=== PATIENT | male | born 1965 | race Caucasian/White ===

== ENCOUNTER → 2016-09-19 | Outpatient (CLI) | payer OTHER ==
[~2016-09-19] MED LIST: ACT30 PO; ASPI81TA28 PO; CLOP1TAB15 PO; DICY20TA35 PO; IBUP-1428 PO; IBUP-1459 PO; LISI-461 PO; METF-384 PO; NTRGSL/4 UT; RANI150T3 PO; ROSU20TA PO
--- NOTE | 2016-09-19 21:14 | DIAGNOSTIC IMAGING REPORT ---
LEFT KNEE 2 VIEWS HISTORY: LEFT KNEE PAIN COMPARISON: None. FINDINGS: There is no fracture or dislocation. No knee effusion. There is thickening at the distal quadriceps tendon. The patella is normally aligned. No radiopaque foreign bodies. IMPRESSION: 1. No fractures within the left knee. 2. Thickening at the distal quadriceps tendon suggestive of a partial tear/tendinopathy. Electronically signed by: Tony Olvera M.D. 09/19/2016 9:13 PM Dictated Date/Time: 09/19/2016 9:12 PM
== END | disposition home or self-care (01) ==
LOC: C.RAD 20:54
PROVIDERS: ATTEND Family Medicine
DX: M25.562 Pain in left knee (principal)

== ENCOUNTER 2016-12-10 15:08 | Emergency (ER) | payer OTHER ==
[~2016-12-10] VITALS: Ht 172.7 cm; Wt 117.0 kg
[~2016-12-10 15:08] MED LIST changes: -DICY20TA35 PO; -IBUP-1428 PO
[2016-12-10 15:13] VITALS: TEMP 36.8; Ht 172.7 cm; Wt 117.0 kg
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
[2016-12-10] MEDS ORDERED: IBUP-1428 PO (16:27)
--- NOTE | 2016-12-10 16:42 | EMERGENCY ROOM VISIT NOTE ---
ED Visit Note First contact with patient: 15:27 Resident Physician Supervision Note: I was present with Dr. Rogers during the history and exam. I discussed the case with the resident and agree with the findings and plan as documented in the note. Any exceptions or clarifications are listed here: [None] Documented By: Gilles Pickett
[2016-12-10 16:58] LABS: BASO % 0.3 %; BASO ABS # 0.02 K/uL (0-0.2); COMPLETE YES; EOS % 1.4 %; HEMATOCRIT 44.5 % (42-52); IG% 0.1 %; LYMPH % 35.7 %; LYMPH ABS # 2.85 K/uL (1.2-3.4); MEAN CORPUSCULAR HEMOGLOBIN 30.1 pg (25-34); MEAN PLATELET VOLUME 8.9 fL (7.4-10.4); MONO % 6.5 %; PLATELET COUNT 331 K/uL (130-400); RED BLOOD COUNT 4.89 M/uL (4.7-6.1); WHITE BLOOD COUNT 7.98 K/uL (4.8-10.8)
[2016-12-10 17:15] LABS: BLOOD UREA NITROGEN 16 mg/dl (7-18); BUN/CREATININE RATIO 12.3 (10-20); CALCIUM 9.5 mg/dl (8.5-10.1); CARBON DIOXIDE 26 mmol/L (21-32); CHLORIDE 104 mmol/L (98-107); GLUCOSE 122 mg/dl (70-99); POTASSIUM 4.3 mmol/L (3.5-5.1); SODIUM 137 mmol/L (136-145)
--- NOTE | 2016-12-10 17:21 | DIAGNOSTIC IMAGING REPORT ---
ABDOMEN 2VIEW W/PA CHEST RTN CLINICAL HISTORY: Abdo/low rib pain pain COMPARISON STUDY: No previous studies for comparison. FINDINGS: The soft tissues, psoas shadows, renal outlines and intestinal gas pattern appear normal. There is no evidence for bowel obstruction. There is no evidence for free intraperitoneal air. No abnormal abdominal calcifications are seen. A frontal view of the chest was performed and is unremarkable. IMPRESSION: Normal study. The above report was generated using voice recognition software. It may contain grammatical, syntax or spelling errors. Electronically signed by: Syed Drew M.D. 12/10/2016 5:19 PM Dictated Date/Time: 12/10/2016 5:18 PM
[2016-12-10] MEDS ORDERED: SIMETHICONE 80 MG CHEW PO SCH (17:24)
[2016-12-10] MEDS ORDERED: DICY20TA35 PO (18:34)
[2016-12-10 18:49] VITALS: BP 148/68; PULSE 80; O2SAT 95
== END 2016-12-10 19:00 | disposition home or self-care (01) ==
LOC: C.EDB 15:09
DX: R10.812 Left upper quadrant abdominal tenderness (principal); E11.9 Type 2 diabetes mellitus without complications; M47.812 Spondylosis without myelopathy or radiculopathy, cervical region; R11.2 Nausea with vomiting, unspecified; Z87.891 Personal history of nicotine dependence; Z98.890 Other specified postprocedural states; Z83.3 Family history of diabetes mellitus; Z82.49 Family history of ischemic heart disease and other diseases of the circulatory system; Z84.1 Family history of disorders of kidney and ureter; Z79.02 Long term (current) use of antithrombotics/antiplatelets; Z79.82 Long term (current) use of aspirin; Z79.84 Long term (current) use of oral hypoglycemic drugs

== ENCOUNTER 2017-07-30 16:08 | Observation (INO) | payer OTHER ==
[~2017-07-30] VITALS: Ht 172.7 cm; Wt 113.5 kg
[~2017-07-30 16:08] MED LIST changes: -ACT30 PO; -ASPI81TA28 PO; -IBUP-1459 PO; -NTRGSL/4 UT; -RANI150T3 PO; -ROSU20TA PO
[2017-07-30] MEDS ORDERED: IBUP-1428 PO (16:27)
[2017-07-30] MEDS ORDERED: METHYLPREDNISOLONE 125 MG VIAL IV STA (16:58)
[2017-07-30] MEDS ORDERED: ALBUT/IPRATROP 3MG/0.5MG NEB 3 ML VIAL INH ONE (17:00)
[2017-07-30] MEDS ORDERED: ESOM20CA PO (17:10)
[2017-07-30 17:41] LABS: BASO % 0.6 %; BASO ABS # 0.03 K/uL (0-0.2); EOS % 0.6 %; EOS ABS # 0.03 K/uL (0-0.5); HEMATOCRIT 42.5 % (42-52); HEMOGLOBIN 14.8 g/dL (14.0-18.0); LYMPH % 29.1 %; LYMPH ABS # 1.41 K/uL (1.2-3.4); MEAN CELL VOLUME 89.7 fL (80-100); MEAN CORPUSCULAR HEMOGLOBIN 31.2 pg (25-34); MEAN CORPUSCULAR HGB CONC 34.8 g/dl (32-36); MEAN PLATELET VOLUME 8.8 fL (7.4-10.4); MONO % 15.5 %; MONO ABS # 0.75 K/uL (0.11-0.59); NEUT % 54.2 %; NEUT ABS # 2.63 K/uL (1.4-6.5); PLATELET COUNT 225 K/uL (130-400); RED CELL DISTRIBUTION WIDTH CV 13.1 % (11.5-14.5); RED CELL DISTRIBUTION WIDTH SD 42.9 fL (36.4-46.3); WHITE BLOOD COUNT 4.85 K/uL (4.8-10.8)
[2017-07-30 18:01] LABS: ALBUMIN 3.4 gm/dl (3.4-5.0); ALT/SGPT 59 U/L (12-78); BLOOD UREA NITROGEN 16 mg/dl (7-18); CALCIUM 8.4 mg/dl (8.5-10.1); CARBON DIOXIDE 26 mmol/L (21-32); CREATININE 1.24 mg/dl (0.60-1.40); GLUCOSE 141 mg/dl (70-99); POTASSIUM 3.8 mmol/L (3.5-5.1); SODIUM 134 mmol/L (136-145)
--- NOTE | 2017-07-30 18:03 | DIAGNOSTIC IMAGING REPORT ---
CHEST 2 VIEWS ROUTINE HISTORY: 51 years-old Male cough, chills, eval PNA acute cough and chills with flulike symptoms COMPARISON: Acute abdominal series radiographs 12/10/2016 TECHNIQUE: PA and lateral views of the chest FINDINGS: Cardiomediastinal and hilar silhouettes are within normal limits. No pneumothorax, pleural effusion, focal airspace consolidation or overt pulmonary edema. The bones of the chest appear grossly intact. IMPRESSION: No acute process. The above report was generated using voice recognition software. It may contain grammatical, syntax or spelling errors. Electronically signed by: Keven Fajardo M.D. 07/30/2017 6:02 PM Dictated Date/Time: 07/30/2017 6:00 PM
[2017-07-30 18:06] LABS: ALKALINE PHOSPHATASE 56 U/L (45-117); AST/SGOT 51 U/L (15-37); TOTAL PROTEIN 6.9 gm/dl (6.4-8.2)
[2017-07-30 18:13] LABS: INFLUENZA B ANTIGEN POS for Influ B (NEG)
[2017-07-30 18:45] VITALS: PULSE 79; O2SAT 93
--- NOTE | 2017-07-30 18:57 | EMERGENCY ROOM VISIT NOTE ---
ED Visit Note First contact with patient: 16:48 CHIEF COMPLAINT: Flulike symptoms HISTORY OF PRESENTING ILLNESS: This is a 51-year-old male who presents to the emergency department with complaints of shortness of breath, cough, headaches and body aches that started yesterday. He reports positive chills and nausea/ vomiting with this, but denies any diarrhea, denies fevers. He states his symptoms have been constant, unrelieved with Tylenol, currently rates his body aches as 10/10. He also complains of some chest tightness and rib pain with coughing. He states that he recently quit smoking about 2 weeks ago, and does report a history of COPD although he states he is not on any medications for this. He also has a history of GERD and coronary artery disease, noting a blockage that he states "they were unable to put a stent in." He takes aspirin daily. He reports positive sick contacts at work with similar symptoms, and he notes that he did not get a flu shot this year. He denies any neck pain or stiffness, vision changes, confusion, numbness or weakness of the extremities, abdominal pain, bloody or black stools, urinary symptoms, or rash. REVIEW OF SYSTEMS: A complete 10 point review of systems was reviewed with the patient with pertinent positives and negatives as per history of present illness. All else were negative. PAST MEDICAL HISTORY: Reviewed in chart SOCIAL HISTORY: Lives at home with significant other. Former smoker, quit 2 weeks ago, denies alcohol or recreational drugs. ALLERGIES: No known allergies. PHYSICAL EXAM: CONSTITUTIONAL: Pleasant and cooperative. No acute distress, but does appear uncomfortable. Mildly dehydrated, but otherwise well appearing and well nourished. HEENT: Normocephalic, atraumatic. Pupils equal, round and reactive to light, EOMI. TMs normal. Pharynx normal. Tacky mucous membranes. NECK: Supple, full active range of motion without discomfort. No nuchal rigidity or meningismus. No cervical adenopathy. RESPIRATORY: Diminished throughout to auscultation bilaterally with inspiratory and expiratory wheezing and some rhonchi, no crackles or stridor. Equal expansion bilaterally. CARDIOVASCULAR: Regular rate and rhythm with no murmurs, rubs or gallops. Normal peripheral perfusion. No edema. GASTROINTESTINAL: Soft, nontender, nondistended. No palpable masses or HSM. Bowel sounds present in all quadrants. MUSCULOSKELETAL: Full range of motion of all joints without discomfort. INTEGUMENTARY: No rash or other significant dermatologic conditions noted. NEUROLOGIC: Alert and oriented X 4 with normal affect. Cranial nerves II-XII grossly intact. No focal neurologic deficits noted. Normal strength and sensation in all 4 extremities. Normal speech. Normal gait observed. ED COURSE AND MEDICAL DECISION MAKING: CC: Patient presenting with complaint of flulike symptoms DIFFERENTIAL DIAGNOSIS: Includes, but not limited to viral URI, bronchitis, pneumonia, influenza, COPD exacerbation, CHF, acute coronary syndrome, PE, pleural effusion, pericarditis, pneumothorax, dehydration, among others. INTERPRETATION OF LABS: No leukocytosis, no anemia, no significant electrolyte abnormalities, normal renal function, normal liver enzymes. Negative troponin, pro-BMP within normal limits. Positive for influenza type B. UA negative. IMAGING: CHEST 2 VIEWS ROUTINE HISTORY: 51 years-old Male cough, chills, eval PNA acute cough and chills with flulike symptoms COMPARISON: Acute abdominal series radiographs 12/10/2016 TECHNIQUE: PA and lateral views of the chest FINDINGS: Cardiomediastinal and hilar silhouettes are within normal limits. No pneumothorax, pleural effusion, focal airspace consolidation or overt pulmonary edema. The bones of the chest appear grossly intact. IMPRESSION: No acute process. EKG: Shows normal sinus rhythm with a rate of 73 bpm, no acute ischemic changes noted and no significant changes when compared to EKG from 12/13/2015 by my interpretation. MEDICATION RECONCILIATION: I attest that I have personally reviewed the patient 's current medication list. INITIAL VITAL SIGNS REVIEW: I reviewed the patient's initial vital signs and interpret them as follows: T: Afebrile; BP: Hypertensive; HR: Within normal limits; RR: Within normal limits; Pulse Ox: Within normal limits on room air. Blood pressure screening: The patient was found to have an elevated blood pressure and was referred to the inpatient team for further management. SUMMARY: Patient was evaluated at bedside, history and physical exam performed. Patient is alert and oriented, in no acute distress but does appear uncomfortable and unwell, resting, and stretcher. Patient's lungs are diminished throughout with inspiratory/expiratory wheezing. Patient reports feeling short of breath, though he is not notably tachypneic or using accessory muscles. Patient is noted to drop his sats down to 89% multiple times while on room air, and is hovering in the low 90s consistently. Patient's reports that the patient normally has sats in the high 90s. Patient was placed on 2 L nasal cannula, with improvement in his sats to 95%. EKG reviewed at bedside, NSR with no acute ischemic changes. Orders were placed at bedside for labs, UA, influenza, DuoNeb and IV Solu-Medrol , chest x-ray to evaluate for pneumonia. Patient discussed with Dr. French, who agrees with my assessment and plan. Labs and imaging reviewed as above, patient is positive for influenza type B. Chest x-ray is clear, no pneumonia or pulmonary edema. IV fluids ordered for hydration. Patient reassessed after hour-long DuoNeb, air movement improved, but lungs still with diffuse expiratory wheezing. Patient performed ambulatory sats, nursing staff reports he ranged between 89-91 % on room air. Given the history of COPD with obvious exacerbation and presence of influenza, and the need for oxygen, I feel the patient would benefit from inpatient admission. I spoke with the [facility] hospitalist resident, who agrees to evaluate the patient for admission. Patient reassessed multiple times throughout ED stay, he does appear improved overall, though he states he continues to feel fatigued and is having body aches. Patient was updated on all results and plan for admission, patient and his verbalized understanding and were agreeable to this plan. The patient was stable at time of admission. Problem List Medical Problems: (1) Blindness of one eye Permanent Comment: R eye prosthesis Status: Chronic (2) Cervical radiculopathy Status: Chronic (3) Depression Status: Chronic (4) DJD (degenerative joint disease) of cervical spine Status: Chronic (5) DM type 2 (diabetes mellitus, type 2) Status: Chronic (6) Dyslipidemia Status: Chronic (7) History of multiple pulmonary nodules Permanent Comment: CT chest 11/25/12- multiple bilateral pulmonary nodules, largest in LLL Status: Chronic Surgical Problems: (1) History of inguinal hernia repair Status: Chronic Current/Historical Medications Scheduled Aspirin (Aspirin Ec), 81 MG PO QAM Esomeprazole Magnesium (Nexium), 20 MG PO Q2D Lisinopril (Lisinopril), 10 MG PO QAM Metformin Hcl (Glucophage), 1,000 MG PO BID Scheduled PRN Ibuprofen (Motrin), 800 MG PO Q6H PRN for Pain Nitroglycerin (Nitrostat), 0.4 MG UT UD PRN for Chest Pain Allergies Coded Allergies: No Known Allergies (Unverified , 07/30/17) Vital Signs Date Time Temp Pulse Resp B/P (MAP) Pulse Ox O2 Delivery O2 Flow Rate FiO2 07/30/17 23:10 122/73 07/30/17 23:06 79 16 93 Nasal Cannula 2.0 07/30/17 22:36 85 07/30/17 22:31 130/81 07/30/17 22:07 84 23 94 07/30/17 22:01 132/78 07/30/17 21:37 85 23 94 07/30/17 21:32 124/ 07/30/17 21:31 100 17 92 07/30/17 21:01 90 16 131/78 94 07/30/17 20:56 90 96 Nasal Cannula 2.0 07/30/17 20:41 92 26 91 07/30/17 20:35 89 Room Air 07/30/17 20:35 91 Room Air 07/30/17 20:26 91 25 91 07/30/17 20:11 104 17 92 07/30/17 20:06 87 17 97 07/30/17 20:01 145/76 07/30/17 20:00 88 13 98 07/30/17 19:31 129/87 07/30/17 19:30 88 22 131/80 99 07/30/17 19:00 69 30 07/30/17 18:45 79 18 93 Room Air 07/30/17 18:16 65 18 132/84 93 Room Air 07/30/17 17:39 69 07/30/17 16:11 37.1 79 20 142/89 93 Room Air Laboratory Results 07/30/17 17:30 Red Blood Count 4.74, Mean Corpuscular Volume 89.7, Mean Corpuscular Hemoglobin 31.2, Mean Corpuscular Hemoglobin Concent 34.8, Mean Platelet Volume 8.8, Neutrophils (%) (Auto) 54.2, Lymphocytes (%) (Auto) 29.1, Monocytes (%) (Auto) 15.5, Eosinophils (%) (Auto) 0.6, Basophils (%) (Auto) 0.6, Neutrophils # (Auto ) 2.63, Lymphocytes # (Auto) 1.41, Monocytes # (Auto) 0.75, Eosinophils # (Auto ) 0.03, Basophils # (Auto) 0.03 07/30/17 17:30 Test 07/30/17 17:30 07/30/17 17:38 07/30/17 17:45 White Blood Count 4.85 K/uL (4.8-10.8) Red Blood Count 4.74 M/uL (4.7-6.1) Hemoglobin 14.8 g/dL (14.0-18.0) Hematocrit 42.5 % (42-52) Mean Corpuscular Volume 89.7 fL (80-100) Mean Corpuscular Hemoglobin 31.2 pg (25-34) Mean Corpuscular Hemoglobin Concent 34.8 g/dl (32-36) Platelet Count 225 K/uL (130-400) Mean Platelet Volume 8.8 fL (7.4-10.4) Neutrophils (%) (Auto) 54.2 % Lymphocytes (%) (Auto) 29.1 % Monocytes (%) (Auto) 15.5 % Eosinophils (%) (Auto) 0.6 % Basophils (%) (Auto) 0.6 % Neutrophils # (Auto) 2.63 K/uL (1.4-6.5) Lymphocytes # (Auto) 1.41 K/uL (1.2-3.4) Monocytes # (Auto) 0.75 K/uL (0.11-0.59) Eosinophils # (Auto) 0.03 K/uL (0-0.5) Basophils # (Auto) 0.03 K/uL (0-0.2) RDW Standard Deviation 42.9 fL (36.4-46.3) RDW Coefficient of Variation 13.1 % (11.5-14.5) Immature Granulocyte % (Auto) 0.0 % Immature Granulocyte # (Auto) 0.00 K/uL (0.00-0.02) Anion Gap 7.0 mmol/L (3-11) Est Creatinine Clear Calc Drug Dose 88.5 ml/min Estimated GFR () 78.6 Estimated GFR (Non- 67.8 BUN/Creatinine Ratio 12.6 (10-20) Calcium Level 8.4 mg/dl (8.5-10.1) Total Bilirubin 0.3 mg/dl (0.2-1) Aspartate Amino Transf (AST/SGOT) 51 U/L (15-37) Alanine Aminotransferase (ALT/SGPT) 59 U/L (12-78) Alkaline Phosphatase 56 U/L (45-117) Troponin I < 0.015 ng/ml (0-0.045) Pro-B-Type Natriuretic Peptide 47 pg/ml (0-450) Total Protein 6.9 gm/dl (6.4-8.2) Albumin 3.4 gm/dl (3.4-5.0) Globulin 3.5 gm/dl (2.5-4.0) Albumin/Globulin Ratio 1.0 (0.9-2) Influenza Type A Antigen Neg for Influ A (NEG) Influenza Type B Antigen POS for Influ B (NEG) Urine Color YELLOW Urine Appearance CLEAR (CLEAR) Urine pH 5.0 (4.5-7.5) Urine Specific [place] 1.020 (1.000-1.030) Urine Protein NEG (NEG) Urine Glucose (UA) TRACE (NEG) Urine Ketones NEG (NEG) Urine Occult Blood NEG (NEG) Urine Nitrite NEG (NEG) Urine Bilirubin NEG (NEG) Urine Urobilinogen NEG (NEG) Urine Leukocyte Esterase NEG (NEG) Medications Administered Medications (Trade) Dose Ordered Sig/Yin Route Start Time Stop Time Status Last Admin Dose Admin Albuterol/ Ipratropium (Duoneb) 12 ml ONE ONCE INH 07/30/17 17:00 07/30/17 17:03 DC 07/30/17 18:44 12 ML Methylprednisolone Sodium Succinate (Solu-Medrol IV) 125 mg NOW STAT IV 07/30/17 16:58 07/30/17 17:03 DC 07/30/17 18:06 125 MG Oseltamivir Phosphate (Tamiflu Cap) 75 mg NOW STAT PO 07/30/17 19:31 07/30/17 19:33 DC 07/30/17 20:06 75 MG Ibuprofen (Motrin Tab) 800 mg NOW STAT PO 07/30/17 19:59 07/30/17 20:01 DC 07/30/17 20:07 800 MG Sodium Chloride 1,000 ml @ 999 mls/hr Q1H1M STAT IV 07/30/17 20:54 07/30/17 21:54 DC 07/30/17 21:00 999 MLS/HR Departure Information Referrals No Doctor, Assigned (PCP) Patient Instructions [facility]
[2017-07-30] MEDS ORDERED: GLUCOSE 10 TABS/TUBE PO PRN (19:15)
[2017-07-30] MEDS ORDERED: GLUCAGON FOR INJ 1 MG VIAL SQ PRN (19:15)
[2017-07-30] MEDS ORDERED: GLUCOSE 40% GEL 15 GM TUBE PO PRN (19:15)
[2017-07-30] MEDS ORDERED: OSELTAMIVIR PHOSPHATE 75 MG CAP PO STA (19:31)
[2017-07-30] MEDS ORDERED: ACETAMINOPHEN 500 MG TAB PO STA (19:31)
[2017-07-30] MEDS ORDERED: IBUPROFEN 800 MG TAB PO STA (19:59)
[2017-07-30] MEDS ORDERED: SODIUM CHLORIDE 0.9% 1000ML 1,000 ML IV STA (20:54)
[2017-07-30] MEDS ORDERED: ASPI81TA28 PO (20:58)
[2017-07-30] MEDS ORDERED: NTRGSL/4 UT (20:58)
--- NOTE | 2017-07-30 22:33 | History and Physical ---
History & Physical Date & Time of Service: Jul 30, 2017 at 22:24 Chief Complaint: Flu Like Pain In Chest Primary Care Physician: No Doctor, Assigned History of Present Illness Source: patient 51 yo M with pMHx CAD, COPD, DM II, HTN, HLD presents to the ED with 24 hour history of headache, myalgias, fatigue, cough with chest tightness and difficulty breathing. He is unsure of fevers but has felt chilled. He states he also has nausea and 3 episodes of non bloody emesis. He also had an episode of epistaxis. He has been taking Tylenol with minimal relief. No sore throat, some congestion, no rhinorrhea. No chest pain or palpitations. Patient was an ex smoker with ~20 pack year history, he states he quit 2 weeks ago. (He has stated the same in previous admissions). He does report a history of COPD although he states he is not taking any inhalers for this. Patient does not use home oxygen. He denies previous cardiac history. He is unsure of his DM control as he does not regularly check and cannot recall his last HbA1c. Patient did not get the influenza vaccination this year. In the ED, patient received DuoNeb and Solu-Medrol for significant wheezing and was found to be positive for influenza B. ROS is otherwise unremarkable. Past Medical/Surgical History Medical Problems: Blindness of one eye CAD (coronary atherosclerotic disease) Cervical radiculopathy secondary to degenerative joint disease of cervical spine COPD Depression DM type 2 Dyslipidemia History of multiple pulmonary nodules HTN Family History Diabetes mellitus Hypertension Kidney disease Kidney stones Social History Smoking Status: Former Smoker Smokeless Tobacco Use: No Alcohol Use: none Drug Use: none Marital Status: Housing status: lives with family Occupational Status: employed Immunizations History of Influenza Vaccine: Unknown History of Tetanus Vaccine?: Unknown History of Pneumococcal: Unknown History of Hepatitis B Vaccine: Unknown Allergies Coded Allergies: No Known Allergies (Unverified , 07/30/17) Home Medications Scheduled Aspirin (Aspirin Ec), 81 MG PO QAM Esomeprazole Magnesium (Nexium), 20 MG PO Q2D Glyburide (Glyburide), 1 TAB PO DAILY Lisinopril (Lisinopril), 10 MG PO QAM Metformin Hcl (Glucophage), 1,000 MG PO BID Oseltamivir Phosphate (Tamiflu), 75 MG PO BID Prednisone (Prednisone), 10 MG PO UD Tiotropium [place] (Spiriva Handihaler), 1 CAP INH DAILY Scheduled PRN Albuterol Hfa (Ventolin Hfa), 2-4 PUFFS INH Q6H PRN for Wheezing Benzonatate (Tessalon Perles), 200 MG PO TID PRN for Cough Ibuprofen (Motrin), 800 MG PO Q6H PRN for Pain Nitroglycerin (Nitrostat), 0.4 MG UT UD PRN for Chest Pain Physical Exam Vital Signs Date Time Temp Pulse Resp B/P (MAP) Pulse Ox O2 Delivery O2 Flow Rate FiO2 07/30/17 21:32 124/ 07/30/17 21:31 100 17 92 07/30/17 21:01 90 16 131/78 94 07/30/17 20:56 90 96 Nasal Cannula 2.0 07/30/17 20:41 92 26 91 07/30/17 20:35 89 Room Air 07/30/17 20:35 91 Room Air 07/30/17 20:26 91 25 91 07/30/17 20:11 104 17 92 07/30/17 20:06 87 17 97 07/30/17 20:01 145/76 07/30/17 20:00 88 13 98 07/30/17 19:31 129/87 07/30/17 19:30 88 22 131/80 99 07/30/17 19:00 69 30 07/30/17 18:45 79 18 93 Room Air 07/30/17 18:16 65 18 132/84 93 Room Air 07/30/17 17:39 69 07/30/17 16:11 37.1 79 20 142/89 93 Room Air General Appearance: WD/WN, no apparent distress, + pertinent finding (NC in situ) Head: normocephalic, atraumatic Eyes: normal inspection, sclerae normal ENT: hearing grossly normal Neck: supple Respiratory/Chest: no respiratory distress, no accessory muscle use, + wheezing (scattered, particularly on expiration) Cardiovascular: regular rate, rhythm, normal peripheral pulses Abdomen/GI: normal bowel sounds, non tender, soft Back: normal inspection, no CVA tenderness Extremities/Musculoskelatal: no calf tenderness, no pedal edema Neurologic/Psych: alert, normal mood/affect, oriented x 3 Diagnostics Laboratory Results Results Past 24 Hours Test 3/22/18 17:30 07/30/17 17:38 07/30/17 17:45 Range/Units White Blood Count 4.85 4.8-10.8 K/uL Red Blood Count 4.74 4.7-6.1 M/uL Hemoglobin 14.8 14.0-18.0 g/dL Hematocrit 42.5 42-52 % Mean Corpuscular Volume 89.7 80-100 fL Mean Corpuscular Hemoglobin 31.2 25-34 pg Mean Corpuscular Hemoglobin Concent 34.8 32-36 g/dl Platelet Count 225 130-400 K/uL Mean Platelet Volume 8.8 7.4-10.4 fL Neutrophils (%) (Auto) 54.2 % Lymphocytes (%) (Auto) 29.1 % Monocytes (%) (Auto) 15.5 % Eosinophils (%) (Auto) 0.6 % Basophils (%) (Auto) 0.6 % Neutrophils # (Auto) 2.63 1.4-6.5 K/uL Lymphocytes # (Auto) 1.41 1.2-3.4 K/uL Monocytes # (Auto) 0.75 0.11-0.59 K/uL Eosinophils # (Auto) 0.03 0-0.5 K/uL Basophils # (Auto) 0.03 0-0.2 K/uL RDW Standard Deviation 42.9 36.4-46.3 fL RDW Coefficient of Variation 13.1 11.5-14.5 % Immature Granulocyte % (Auto) 0.0 % Immature Granulocyte # (Auto) 0.00 0.00-0.02 K/uL Sodium Level 134 136-145 mmol/L Potassium Level 3.8 3.5-5.1 mmol/L Chloride Level 100 98-107 mmol/L Carbon Dioxide Level 26 21-32 mmol/L Anion Gap 7.0 3-11 mmol/L Blood Urea Nitrogen 16 7-18 mg/dl Creatinine 1.24 0.60-1.40 mg/dl Est Creatinine Clear Calc Drug Dose 88.5 ml/min Estimated GFR () 78.6 Estimated GFR (Non- 67.8 BUN/Creatinine Ratio 12.6 10-20 Random Glucose 141 70-99 mg/dl Calcium Level 8.4 8.5-10.1 mg/dl Total Bilirubin 0.3 0.2-1 mg/dl Aspartate Amino Transf (AST/SGOT) 51 15-37 U/L Alanine Aminotransferase (ALT/SGPT) 59 12-78 U/L Alkaline Phosphatase 56 45-117 U/L Troponin I < 0.015 0-0.045 ng/ml Pro-B-Type Natriuretic Peptide 47 0-450 pg/ml Total Protein 6.9 6.4-8.2 gm/dl Albumin 3.4 3.4-5.0 gm/dl Globulin 3.5 2.5-4.0 gm/dl Albumin/Globulin Ratio 1.0 0.9-2 Influenza Type A Antigen Neg for Influ A NEG Influenza Type B Antigen POS for Influ B NEG Urine Color YELLOW Urine Appearance CLEAR CLEAR Urine pH 5.0 4.5-7.5 Urine Specific [place] 1.020 1.000-1.030 Urine Protein NEG NEG Urine Glucose (UA) TRACE NEG Urine Ketones NEG NEG Urine Occult Blood NEG NEG Urine Nitrite NEG NEG Urine Bilirubin NEG NEG Urine Urobilinogen NEG NEG Urine Leukocyte Esterase NEG NEG Diagnostic Radiology CHEST 2 VIEWS ROUTINE HISTORY: 51 years-old Male cough, chills, eval PNA acute cough and chills with flulike symptoms COMPARISON: Acute abdominal series radiographs 12/10/2016 TECHNIQUE: PA and lateral views of the chest FINDINGS: Cardiomediastinal and hilar silhouettes are within normal limits. No pneumothorax, pleural effusion, focal airspace consolidation or overt pulmonary edema. The bones of the chest appear grossly intact. IMPRESSION: No acute process. Impression Assessment and Plan 51 yo M with pMHx CAD, COPD, DM II, HTN, HLD presents to the ED with 24 hour history of headache, myalgias, fatigue, cough with chest tightness and difficulty breathing. In the ED, patient received DuoNeb and Solu-Medrol for significant wheezing and was found to be positive for influenza B. Acute hypoxic respiratory failure - Supplemental O2, wean as tolerated - Treat underlying cause Influenza - Tamiflu 75mg BID x 5 days COPD exacerbation - Not on any home inhalers - IV methylprednisone 40mg q12h - DuoNeb q4h or q2h PRN SOB EKG changes - EKG had some evidence of ischemia in lateral leads - Repeat EKG in AM - Serial troponin - Echo ordered - Continue aspirin - Check fasting lipid profile DM - Metformin Held - ISS with accu checks ac/hs - Check HbA1c HTN - Continue lisinopril GERD - Continue pantoprazole Tobacco abuse - - Nicotine patch PRN VTE ppx - Hep SC FULL CODE Attending addendum: I have physically seen this patient, have supervised the medical residents activities, and agree with the H&P unless as otherwise noted. Assessment and Plan: Acute respiratory failure with hypoxia/COPD exacerbation/influenza B-- Received Solu-Medrol 125 mg IV in the ED. Solu-Medrol 40 mg IV every 12 hours. Duonebs every 4 hours while awake and every 2 hours when necessary. Tamiflu 75 mg p.o. twice daily Guaifenesin extended release 650 mg p.o. twice daily. EKG changes suggestive of possible lateral ischemia-- The patient will be admitted to telemetry for serial cardiac enzymes, serial EKG's, cardiac rhythm monitoring and a 2-D echocardiogram with Dopplers. Continue aspirin. Diabetes mellitus-- Hold metformin. Placed on Accu-Cheks before meals and at bedtime with NovoLog coverage per scale. Advanced Directives Existing Advance Directive: No Existing Living Will: No Existing Power of Motor Coach Operator: No Existing Health Care Proxy: Yes (, Michelle Myrick) Resuscitation Status Full code VTE Prophylaxis Will order VTE Prophylaxis: Yes Resident Tracking Resident Involvement: Resident Care Provided Care Provided: Adult Hospital Medicine
[2017-07-30] MEDS ORDERED: MAGNESIUM HYDROXIDE SUSP 30 ML UDC PO PRN (23:15)
[2017-07-30] MEDS ORDERED: ONDANSETRON INJ 2 MG/ML 2 ML VIAL IV PRN (23:15)
[2017-07-30] MEDS ORDERED: NITROGLYCERIN 0.4 MG SL PER TAB CHARGE SL PRN (23:15)
[2017-07-30] MEDS ORDERED: POLYETHYLENE (MIRALAX) 17 GM PACK PO PRN (23:15)
[2017-07-30] MEDS ORDERED: ACETAMINOPHEN 325 MG TAB PO PRN (23:15)
[2017-07-30] MEDS ORDERED: ALUMINUM/MAGNESIUM/SIMETH (MAALOX MAX) 30 ML UDC PO PRN (23:15)
[2017-07-30] MEDS ORDERED: NICOTINE 7 MG/24 HR TDSY TD PRN (23:30)
[2017-07-31] VITALS (11 sets, daily range): BP systolic 119–151; BP diastolic 74–89; PULSE 67–93; TEMP 36.7–37.1; O2SAT 91–94; Ht 172.7 cm; Wt 113.5 kg
[2017-07-31] MEDS ORDERED: IV FLUIDS COMPLETED PRN (03:15)
[2017-07-31] MEDS: BENZONATATE 100MG CAP PO PRN ×2 (05:48→16:35)
[2017-07-31] MEDS: ALBUT/IPRATROP 3MG/0.5MG NEB 3 ML VIAL INH SCH ×3 (07:07→15:09)
[2017-07-31 07:33] LABS: HEMATOCRIT 43.2 % (42-52); HEMOGLOBIN 14.7 g/dL (14.0-18.0); IG# 0.01 K/uL (0.00-0.02); LYMPH ABS # 0.79 K/uL (1.2-3.4); MEAN CELL VOLUME 89.8 fL (80-100); MEAN CORPUSCULAR HEMOGLOBIN 30.6 pg (25-34); MEAN PLATELET VOLUME 9.2 fL (7.4-10.4); MONO % 6.2 %; MONO ABS # 0.35 K/uL (0.11-0.59); NEUT % 79.6 %; PLATELET COUNT 248 K/uL (130-400); RED CELL DISTRIBUTION WIDTH CV 12.8 % (11.5-14.5); RED CELL DISTRIBUTION WIDTH SD 42.2 fL (36.4-46.3); WHITE BLOOD COUNT 5.65 K/uL (4.8-10.8)
[2017-07-31 08:05] LABS: ALBUMIN 3.3 gm/dl (3.4-5.0); ALT/SGPT 70 U/L (12-78); AST/SGOT 52 U/L (15-37); BLOOD UREA NITROGEN 18 mg/dl (7-18); CALCIUM 8.8 mg/dl (8.5-10.1); CARBON DIOXIDE 24 mmol/L (21-32); CHOLESTEROL 191 mg/dl (0-200); CREATININE 1.37 mg/dl (0.60-1.40); GLUCOSE 288 mg/dl (70-99); POTASSIUM 4.5 mmol/L (3.5-5.1); SODIUM 135 mmol/L (136-145)
[2017-07-31 08:12] LABS: ALKALINE PHOSPHATASE 53 U/L (45-117); LDL CHOLESTEROL CALCULATED 135 mg/dl
--- NOTE | 2017-07-31 08:17 | Family Medicine Progress Note ---
Progress Note Date of Service Jul 31, 2017. Subjective Pt reports he's feeling much better with his breathing this AM, has had 2 breathing treatments so far. Says now his symptoms are coughing moderate, and congestion in his head. Otherwise, has eaten breakfast, tolerating well. Denies craving cigarettes at this time. Denies chest pain, abdominal pain or diarrhea/constipation, denies any pain or numbness or tingling in his extremities. Says he was last seen in the PCP office 1 year ago. PFT's diagnosed his COPD back then. No longer smokes, has quit for several months although has had a handful of cigarettes in the last few weeks. Also has had sleep study done that shows MANDEEP, says he has never followed up on that because he doesn't have time. Lives with and kids, family members are otherwise healthy. ROS See HPI for pertinent positives and negatives. Objective Physical Exam Notes: GENERAL: Awake, alert, in no distress. Obese. HENT: Normocephalic, atraumatic. EYES: Normal conjunctiva. Sclera non-icteric. NECK: Supple. No nuchal rigidity. FROM. No JVD. RESPIRATORY: ++Very mild wheeze heard at bases bilaterally, otherwise clear. CARDIAC: Regular rate, normal rhythm. Extremities warm and well perfused. Pulses equal. ABDOMEN: Soft, non-distended. No tenderness to palpation. No rebound or guarding. No masses. LOWER EXTREMITIES: SCD's in place. NEURO: No motor deficits noted. SKIN: No rash or jaundice noted. Assessment and Plan Here for flu and COPD exac. Currently on duonebs sched, Solumedrol and O2 2L. Tamiflu on. Exam benign, could consider transfer to med/surg later today if stable.. MANDEEP - cpap may be needed if stays another night. Code full Resident Tracking Resident Involvement: Resident Care Provided Care Provided: Adult Hospital Medicine
[2017-07-31] MEDS: INSULIN ASPART 100 UNITS/ML 3 ML PEN SC SCH ×3 (08:18→17:13)
[2017-07-31] MEDS ORDERED: HEPARIN SOD 5000 UNIT/0.5 ML CARP SQ SCH (09:00)
[2017-07-31] MEDS ORDERED: PANTOprazole SOD 40 MG TAB PO SCH (09:00)
[2017-07-31] MEDS ORDERED: METHYLPREDNISOLONE IV 40 MG in SYRINGE 0 ML IV SCH (09:00)
[2017-07-31] MEDS ORDERED: LISINOPRIL 10 MG TAB PO SCH (09:00)
[2017-07-31] MEDS ORDERED: ASPIRIN 81 MG ECTAB PO SCH (09:00)
[2017-07-31] MEDS ORDERED: OSELTAMIVIR PHOSPHATE 75 MG CAP PO SCH (09:00)
[2017-07-31 09:27] LABS: HEMOGLOBIN A1C 8.4 % (4.5-5.6)
--- NOTE | 2017-07-31 15:16 | ECHOCARDIOGRAM REPORT ---
*NOTICE TO RECEIVING [employer] This information is strictly Confidential and protected under [place] law. [place] law prohibits you from making any further disclosure of this information unless further disclosure is expressly permitted by the written consent of the person to whom it pertains or is authorized by law. A general authorization for the release of medical or other information is not sufficient for this purpose. Hospital accepts no responsibility if the information is made available to any other person, INCLUDING THE PATIENT. Interpretation Summary * Name: ISABEL LIRIANO Study Date: 07/31/2017 07:00 AM BP: 119/74 mmHg * Patient Location: C.2E\S\E212\S\1 HR: 67 * : 1965 (M/d/yyyy) Gender: Male Height: 68 in * Age: 51 yrs Ethnicity: [place] Weight: 252 lb * Ordering Physician: Yoanna Rogers * Referring Physician: Self, Referred * Performed By: Nehal Landa RCS * * Reason For Study: EKG Changes * BSA: 2.3 m2 * -- Conclusions -- * 1. Normal left ventricular size and systolic function. EF 65-70%. No regional wall motion abnormalities. No left ventricular hypertrophy. No significant diastolic dysfunction suggested. * 2. No significant valvular abnormalities. * 3. No significant change from prior study on 05/19/2014. Procedure Details * A complete two-dimensional transthoracic echocardiogram was performed (2D, M-mode, Doppler and color flow Doppler). Left Ventricle * Normal left ventricular size and systolic function. EF 65-70%. No regional wall motion abnormalities. No left ventricular hypertrophy. No significant diastolic dysfunction suggested. Right Ventricle * The right ventricle is grossly normal size. * The right ventricular systolic function is normal as assessed by tricuspid annular plane systolic excursion (TAPSE) (normal >1.5 cm). Atria * The left atrial size is normal. * Right atrial size is normal. * There is no evidence of atrial septal defect, but resolution does not allow assessment for a patent foramen ovale. Mitral Valve * The mitral valve leaflets appear normal. There is no evidence of stenosis, fluttering, or prolapse. * There is no mitral regurgitation noted. Tricuspid Valve * The tricuspid valve is not well visualized, but is grossly normal. * There is no tricuspid stenosis. * There is trace tricuspid regurgitation. Aortic Valve * The aortic valve is trileaflet. * No hemodynamically significant valvular aortic stenosis. * No aortic regurgitation is present. Pulmonic Valve * The pulmonary valve is inadequately visualized, but the Doppler data is adequate for interpretation. * There is no pulmonic valvular stenosis. * There is no significant pulmonary regurgitation. Great Vessels * The aortic root is normal size. * Ascending aorta of normal dimension Pericardium/Pleural * There is no pericardial effusion. Great Vessels * Normal inferior vena cava size and collapsability with sniff indicates a normal right atrial pressure of 3 mmHg MMode 2D Measurements and Calculations IVSd 1.0 cm IVSs 1.3 cm LVIDd 4.8 cm LVIDs 2.7 cm LVPWd 1.0 cm LVPWs 1.3 cm IVS/LVPW 1.0 FS 42.4 % EDV(Teich) 105.3 ml ESV(Teich) 28.1 ml EF(Teich) 73.4 % EDV(cubed) 107.6 ml ESV(cubed) 20.6 ml EF(cubed) 80.9 % % IVS thick 26.1 % % LVPW thick 25.1 % LV mass(C)d 176.6 grams LV mass(C)dI 78.3 grams/m\S\2 LV mass(C)s 110.8 grams LV mass(C)sI 49.2 grams/m\S\2 SV(Teich) 77.2 ml SI(Teich) 34.2 ml/m\S\2 SV(cubed) 87.0 ml SI(cubed) 38.6 ml/m\S\2 Ao root diam 3.4 cm Ao root area 9.0 cm\S\2 ACS 1.9 cm LA dimension 3.8 cm asc Aorta Diam 2.5 cm LA/Ao 1.1 LVAd ap4 30.9 cm\S\2 LVLd ap4 7.9 cm EDV(MOD-sp4) 102.6 ml EDV(sp4-el) 102.6 ml LVAs ap4 17.7 cm\S\2 LVLs ap4 6.7 cm ESV(MOD-sp4) 39.3 ml ESV(sp4-el) 39.6 ml EF(MOD-sp4) 61.7 % EF(sp4-el) 61.4 % EDV(MOD-sp2) 99.6 ml ESV(MOD-sp2) 30.8 ml EF(MOD-sp2) 69.1 % SV(MOD-sp4) 63.3 ml SI(MOD-sp4) 28.1 ml/m\S\2 SV(MOD-sp2) 68.8 ml SI(MOD-sp2) 30.5 ml/m\S\2 SV(sp4-el) 63.0 ml SI(sp4-el) 27.9 ml/m\S\2 Doppler Measurements and Calculations MV E max gustavo 80.3 cm/sec MV A max gustavo 60.4 cm/sec MV E/A 1.3 MV P1/2t max gustavo 88.3 cm/sec MV P1/2t 93.2 msec MVA(P1/2t) 2.4 cm\S\2 MV dec slope 277.5 cm/sec\S\2 MV dec time 0.27 sec Ao V2 max 136.9 cm/sec Ao max PG 7.5 mmHg Ao max PG (full) 10 mmHg LV V1 max PG 6.5 mmHg LV V1 max 127.4 cm/sec PA V2 max 102.7 cm/sec PA max PG 4.2 mmHg
[2017-07-31] MEDS ORDERED: VNTHFA/IN INH (17:17)
[2017-07-31] MEDS ORDERED: GLYB1.257 PO (17:17)
[2017-07-31] MEDS ORDERED: SPRIN/30 INH (17:17)
[2017-07-31] MEDS ORDERED: PRED10TA PO (17:27)
[2017-07-31] MEDS ORDERED: OSEL75CA23 PO (17:27)
[2017-07-31] MEDS ORDERED: BENZ1CAP90 PO (17:27)
--- NOTE | 2017-07-31 18:09 | Discharge Summary ---
Discharge Summary Date of Service Jul 31, 2017. Discharge Summary Admission Date: Jul 30, 2017 at 23:11 Discharge Date: Jul 31, 2017 Discharge Disposition: Home Principal Diagnosis: Influenza, Cough Problems/Secondary Diagnoses: CAD, s/p heart catheterization 2014 COPD T2DM HTN HLD Medication Reconciliation New Medications: Albuterol Hfa (Ventolin Hfa) 200 Puffs/04059 Mcg Aers 2-4 PUFFS INH Q6H PRN for Wheezing, #1 INHALER Benzonatate (Tessalon Perles) 200 Mg Cap 200 MG PO TID PRN for Cough, #10 CAP Glyburide (Glyburide) 1.25 Mg Tab 1 TAB PO DAILY for 30 Days, #30 TAB Oseltamivir Phosphate (Tamiflu) 75 Mg Cap 75 MG PO BID, #9 CAP Prednisone (Prednisone) 10 Mg Tab 10 MG PO UD, #20 TAB 4 tabs x 2 days 3 tabs x 2 days 2 tabs x 2 days 1 tab x 2 days stop. Tiotropium [place] (Spiriva Handihaler) 30 Puff/540 Mcg Aerp 1 CAP INH DAILY for 30 Days, #30 CAP 3 Refills Continued Medications: Aspirin (Aspirin Ec) 81 Mg Tab 81 MG PO QAM Esomeprazole Magnesium (Nexium) 20 Mg Capcr 20 MG PO Q2D, CAP Ibuprofen (Motrin) 800 Mg Tab 800 MG PO Q6H PRN for Pain, TAB Lisinopril (Lisinopril) 10 Mg Tab 10 MG PO QAM Metformin Hcl (Glucophage) 1,000 Mg Tab 1000 MG PO BID Nitroglycerin (Nitrostat) 0.4 Mg Tab 0.4 MG UT UD PRN for Chest Pain Discharge Exam Mr. Myrick is resting comfortably in bed on day of discharge, still reports a moderate non-productive cough, and congestion with rhinorrhea as well as flu- like achiness all over. Discussed at length plan of care today and discharge with attention to follow up with pcp. Answered all questions. Denies chest pain, abdominal pain or diarrhea/constipation, denies any pain or numbness or tingling in his extremities. ROS See HPI for pertinent positives and negatives. PE GENERAL: Awake, alert, in no distress. Obese. HENT: Normocephalic, atraumatic. EYES: Normal conjunctiva. Sclera non-icteric. NECK: Supple. No nuchal rigidity. FROM. No JVD. RESPIRATORY: ++Very mild wheeze heard at bases bilaterally, otherwise clear. CARDIAC: Regular rate, normal rhythm. Extremities warm and well perfused. Pulses equal. ABDOMEN: Soft, non-distended. No tenderness to palpation. No rebound or guarding. No masses. LOWER EXTREMITIES: SCD's in place. NEURO: No motor deficits noted. SKIN: No rash or jaundice noted. Hospital Course Mr. Myrick was admitted for hypoxia, cough and flu+ diagnostic testing, with a probable history of COPD and consequent exacerbation. While we could not find evidence of PFT's done in outpatient setting, it is clear from his 20+pack year history and chronic cough that pt likely has some underlying reactive airway disease that is making this flu illness more than just a typical episode. COPD acute on chronic cough - while here we treated him as a COPD exacerbation with duonebs, IV methylpred and O2 as needed. For discharge, we wrote for albuterol inhaler for rescue, Spriva for maintenance, and also tessalon perles for his cough. Also wrote for a taper dose of prednisone, as above. - will need PFTs in ~6-8 weeks to assess/diagnose. FLU - for flu - we administered tamiflu, and sent home with script for total of 10 day dose as above. Pt tolerating this well. Instructed to seek out prophylactic care for his children and as child has asthma. Pt understands the need for this. T2DM - pt's A1C is 8.4 here, and home meds for his T2DM include max dose of metformin daily -- we have added Glyburide as above to aid in this, and educated extensively about the need for tighter control. Resident Physician Supervision Note: I interviewed and examined the patient. Discussed with Dr. Weaver and agree with findings and plan as documented in the note. Any exceptions or clarifications are listed here: None Documented By: Benjamín Shireen feeling better - "it's just the cough" otherwise no significant SOB. notes that he was getting up and around in the room wtihout any significant ROSARIO - feels like he'll do OK at home. EXTENSIVE discussions in regards to flu, COPD, DM2. he expressed good insight and understanding into all. ~45mins in discussions. 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 will check 2hr postprandial glucoses and learn from results, modify diet, and work to eliminate simple carbs -for now since A1c too elevated for risk - add glyburide as above CAD -EKGs reviewed - similar to previous when he had [facility] in 2015. no troponin elevation or echo changes - appears to have done well with the physiologic stress of flu. - ongoing med management, outpt f/u, and lifestyle changes as above stable for discharge home, close PCP f/u Total Time Spent: Greater than 30 minutes This includes examination of the patient, discharge planning, medication reconciliation, and communication with other providers. Discharge Instructions Please refer to the electronic Patient Visit Report (Discharge Instructions) for additional information. Additional Copies To Carol Weaver M.D. Resident Tracking Resident Involvement: Resident Care Provided Care Provided: Adult Hospital Medicine
--- NOTE | 2017-07-31 18:14 | Discharge Instructions ---
Discharge Instructions Date of Service Jul 31, 2017. Admission Reason for Admission: Influenza Discharge Discharge Diagnosis / Problem: influenza Discharge Goals Goal(s): Diagnostic testing, Therapeutic intervention Activity Recommendations Activity Limitations: resume your previous activity a) influenza -you tested positive for flu B - this was the "spark that lit the fire" -we'll finish treatment with tamiflu (oseltamivir) twice a day for 10 total doses (next dose tonight) -flu tends to take a while to get better - it's likely the cough will get worse before it improves (probably another 1-2 days of worsening of the cough) then it 'll likely off for a few days, then slowly resolve over about a month. it's VERY typical for flu to cause a cough that takes a month to totally go away -as we discussed, it sounds like most likely your kids should be treated (and because of their risk, probably your should have preventative treatment) - definitely make sure you get in touch with their regular docs tonight or no later than tomorrow to get things taken care of b) COPD -the main thing that made you feel so sick with the breathing secondary to the flu was because of COPD - for now we'll manage as though you do have COPD until we're able to prove or disprove what is really going on. to truly prove COPD we 'll need you to get pulmonary function tests (lung volume measurements) -- as best we can see these have not been done anywhere; it'll be far better to get them done after you've recovered from the flu, so we'd want you to get those scheduled for about 2 months from now -inhalers: -spiriva (tiotropium) -- this is a maintenance inhaler that you'll take once a day every day. it is in a class called anti-cholinergics, and it acts to reduce inflammation and mucous/secretions. statistically, this class of inhalers does the best to keep people out of the hospital/lessen how severe illness is; after you're better from the flu your PCP will determine if the spiriva is an ongoing fixture or if it can be stopped ( mostly based on how you're doing and what the pulmonary function tests show) -albuterol - this is a rescue inhaler that works quickly to open your lungs. take this as needed for shortness of breath/wheezing/tight cough - you'll likely need it pretty frequently over the next few days, and then as the flu gets better you'll likely need it less and less c) uncontrolled type 2 diabetes -your current A1c is up at 8.4% -as we discussed, the main reason for getting sugars under better control is that high sugars clog arteries; the higher your sugar is, and the longer it runs high, the more you clog arteries you can't get back. as a general rule, an A1c of 7% or less shows you're out of trouble with making vascular disease worse; or if you're looking at it as sugar checks, anytime your sugar is above about 150 you're progressively doing more damage (obviously more if it's higher) -also as we discussed, the enormous majority of type 2 diabetes is brought on by eating habits/lack of exercise. for you since you move so much at work the biggest thing is going to be eating --> which mostly to reduce how diabetic you are is looking to reduce "lousy carbs" (breads, pastas, potatoes, starches, processed carbs, etc). when you eat something that has simple carbs in it like that, you'll spike a blood sugar. when you spike a sugar, you clog arteries in the moment, but also since your body has to make a bunch of insulin to get that sugar out of your bloodstream and into your muscles, your muscles get more "addicted" to insulin requiring more. as you look at what you're eating, the easiest way to determine how the food affects your body will be to check a sugar 1-2 hours after eating. -when you're off the steroids (while you're on the prednisone, it'll spike your sugar some, so the next week or so will be a little topsy turvy) - check your sugar about 2 hours after you eat and learn from it -a sugar less than about 150 in the two-hour after you eat time period would be totally normal; the higher your sugar is after you've eaten something, the more that type of food will be making you more of a diabetic and progressing vascular disease. what you'll find pretty typically is that the simple/starchy/ processed carbs will be culprit, and fruits/vegetables/lean meats won't really cause much of an effect -as we discussed, you don't have to be 100% perfect all the time, but the better you do, and the more often you do better, the less of a diabetic you'll become. ultimately my goal for you would be for you to regress your diabetes- "put it in remission" - by progressive changes in your lifestyle. this is realistic, and i've seen it happen with many people as they've made serious lifestyle changes. at the very least, we'll want to see you get things under better control so you have less risk of future heart attacks and strokes. -on the other side of things, if you find that you're not becoming less diabetic, if they're needing to give you more and more medications, etc -- almost always it's because the person (intentionally or not) isn't making the needed lifestyle changes -for now we've added an additional medication (see above) once a day to help your pancreas make a little more insulin and bring your sugars down. our hope is that with ongoing lifestyle change this will be a temporary addition, but since your A1c is well within "artery clogging range" we wanted to bring things into a safer area while you're getting started with lifestyle measures take care of yourself!! . Current Hospital Diet Patient's current hospital diet: Diabetes Type 2 Diet Discharge Diet Recommended Diet: Diabetes Type 2 Diet Pending Studies Studies pending at discharge: no Laboratory Results Hemoglobin A1c Test 07/31/17 06:39 Range/Units Estimated Average Glucose 194 mg/dl Hemoglobin A1c 8.4 H 4.5-5.6 % Lipid Panel Test 07/31/17 06:39 Range/Units Triglycerides Level 103 0-150 mg/dl Cholesterol Level 191 0-200 mg/dl HDL Cholesterol 35 mg/dl Cholesterol/HDL Ratio 5.5 LDL Cholesterol, Calculated 135 mg/dl Medical Emergencies . Who to Call and When: Medical Emergencies: If at any time you feel your situation is an emergency, please call 911 immediately. . Non-Emergent Contact Non-Emergency issues call your: Primary Care Provider . . "Provider Documentation" section prepared by Benjamín Iyer. .
== END 2017-07-31 19:45 | disposition home or self-care (01) ==
LOC: C.EDB 16:09 → C.2E 23:11 → ENRESERV 23:17
PROVIDERS: ADMIT Hospitalist; ATTEND Family Medicine
DX: J11.1 Influenza due to unidentified influenza virus with other respiratory manifestations (principal); I25.10 Atherosclerotic heart disease of native coronary artery without angina pectoris; J44.9 Chronic obstructive pulmonary disease, unspecified; E11.9 Type 2 diabetes mellitus without complications; I10 Essential (primary) hypertension; E78.5 Hyperlipidemia, unspecified; Z87.891 Personal history of nicotine dependence; M50.30 Other cervical disc degeneration, unspecified cervical region; Z79.82 Long term (current) use of aspirin; Z79.899 Other long term (current) drug therapy; Z83.3 Family history of diabetes mellitus; Z82.49 Family history of ischemic heart disease and other diseases of the circulatory system; Z84.1 Family history of disorders of kidney and ureter

== ENCOUNTER 2017-12-07 21:04 | Emergency (ER) | payer OTHER ==
[~2017-12-07] VITALS: Ht 172.7 cm; Wt 113.7 kg
[~2017-12-07 21:04] MED LIST changes: +ASPI81TA28 PO; +BENZ1CAP90 PO; -CLOP1TAB15 PO; +ESOM20CA PO; +GLYB1.257 PO; +IBUP-1428 PO; +NTRGSL/4 UT; +OSEL75CA23 PO; +PRED10TA PO; +SPRIN/30 INH; +VNTHFA/IN INH
[2017-12-07 21:07] VITALS: TEMP 36.8; Ht 172.7 cm; Wt 113.7 kg
[2017-12-07] MEDS ORDERED: NAPROXEN 250 MG TAB PO STA (21:31)
--- NOTE | 2017-12-07 22:26 | EMERGENCY ROOM VISIT NOTE ---
ED Visit Note First contact with patient: 21:20 CHIEF COMPLAINT: Left knee pain HISTORY OF PRESENT ILLNESS: This 52-year-old male patient presents to the emergency department by private vehicle with complaint of left knee pain for the past 1-2 weeks. He states the pain is in the front of his knee, is worse with bending and kneeling, and has also been keeping him awake at night. He describes the pain is constant, worse with movement, bending, and walking, better with rest, currently rates it as 10/10. He has tried Tylenol and ibuprofen with no relief. 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 He states that kneeling aggravates the knee pain as well. He denies any swelling or bruising. He is able to walk on it, but this does increase his pain. He denies any numbness or tingling of the leg. He denies any previous injuries or surgeries to this knee. No ankle, foot or hip pain. He is a diabetic on oral medications only. REVIEW OF SYSTEMS: A 6 system review of systems was completed with positives and pertinent negatives listed in the HPI. ALLERGIES: No known allergies MEDICATIONS: Reviewed in chart, see below. PMH: Reviewed in chart, see problem list below. SOCIAL HISTORY: Lives at home. He denies tobacco use. PHYSICAL EXAM: Vital Signs: Reviewed Nurse's notes, vital signs stable. GENERAL : Pleasant and cooperative, no acute distress, resting comfortably in the stretcher, well-developed, well-nourished. MENTAL STATUS: Alert, oriented to person place and time, and cooperative. MUSCULOSKELETAL: The left knee is not swollen. There is no ecchymosis. There is no joint effusion present. There is no erythema or warmth to touch. No abrasions or lacerations noted to the skin. The patient is tender to palpation along the medial joint line and anterior infrapatellar region. There is no lateral joint line tenderness. The patella does not subluxate and there is no tenderness to palpation over the patella. Range of motion is normal. Strength of the quads and hamstrings is 5/5. Nata' s and Anterior Drawer tests are normal. There is no increased pain or instability with varus and valgus stressing. The foot and toes are warm and well-perfused. Dorsalis pedis pulse 2+. Sensation to pain and light touch is intact. Capillary refill less than 2 seconds. IMAGING: LEFT KNEE 3 VIEWS HISTORY: anterior knee pain, include sunrise view COMPARISON: Left knee 09/19/2016. FINDINGS: There is no fracture or dislocation. Soft tissues are unremarkable. No radiopaque foreign bodies. No knee effusion. IMPRESSION: No fractures. EMERGENCY DEPARTMENT COURSE: I examined the patient. Differential diagnosis includes osteoarthritis, bursitis, tendinitis, ligamentous injury of the knee, fracture, among others. The patient was given naproxen and an ice pack for pain. X-rays of the left knee were reviewed by myself and read by radiology and reveal no acute abnormalities. I do suspect an inflammatory process such as bursitis or tendinitis of the knee. I do not suspect septic bursitis, as there is no swelling, erythema, warmth, and there has not been any fevers or chills. The patient was placed in a knee immobilizer under my direction and the position was satisfactory. Patient is requesting something stronger for pain to help him sleep. No strong concerns with review of the PDMP. I did have a conversation with the patient regarding risk of narcotic use, and only provided a take-home pack with #4 tablets of [place], and he was encouraged to follow-up with his primary care provider for any further pain management needs. He was also given referral information for orthopedic surgery should his symptoms persist, was encouraged to follow-up with them as well. He was given strict return precautions should his symptoms worsen, he verbalized understanding. The patient was discharged home in stable condition and ambulatory. Problem List Medical Problems: (1) Blindness of one eye Permanent Comment: R eye prosthesis Status: Chronic (2) Cervical radiculopathy Status: Chronic (3) Depression Status: Chronic (4) DJD (degenerative joint disease) of cervical spine Status: Chronic (5) DM type 2 (diabetes mellitus, type 2) Status: Chronic (6) Dyslipidemia Status: Chronic (7) History of multiple pulmonary nodules Permanent Comment: CT chest 11/25/12- multiple bilateral pulmonary nodules, largest in LLL Status: Chronic Surgical Problems: (1) History of inguinal hernia repair Status: Chronic Current/Historical Medications Scheduled Acetaminophen (Tylenol), 1,000 MG PO PRN UD Aspirin (Aspirin Ec), 81 MG PO QAM Esomeprazole Magnesium (Nexium), 20 MG PO Q2D Glyburide (Glyburide), 1 TAB PO DAILY Lisinopril (Lisinopril), 10 MG PO QAM Metformin Hcl (Glucophage), 1,000 MG PO BID Tiotropium [place] (Spiriva Handihaler), 1 CAP INH DAILY [Bp Tab], 1 TAB PO DAILY Scheduled PRN Ibuprofen (Motrin), 800 MG PO Q6H PRN for Pain Nitroglycerin (Nitrostat), 0.4 MG UT UD PRN for Chest Pain Allergies Coded Allergies: No Known Allergies (Unverified , 07/30/17) Vital Signs Date Time Temp Pulse Resp B/P (MAP) Pulse Ox O2 Delivery O2 Flow Rate FiO2 12/07/17 22:57 64 16 139/88 95 12/07/17 21:07 36.8 73 18 143/87 95 Room Air Medications Administered Medications (Trade) Dose Ordered Sig/Yin Route Start Time Stop Time Status Last Admin Dose Admin Naproxen (Naprosyn Tab) 500 mg NOW STAT PO 12/07/17 21:31 12/07/17 21:35 DC 12/07/17 21:54 500 MG Acetaminophen/ Hydrocodone Bitart ([place] 5/325mg Home Pack) 1 homepack UD ONCE PO 12/07/17 23:00 12/07/17 23:01 DC 12/07/17 22:54 1 HOMEPACK Departure Information Impression Primary Impression: Knee pain Dispostion Home / Self-Care Condition GOOD Referrals No Doctor, Assigned (PCP) [facility] Patient Instructions ED Bursitis, ED Knee Pain MIKE, [facility] Additional Instructions DISCHARGE INSTRUCTIONS: You have been evaluated and treated in the emergency department today for your left knee pain. X-ray of your knee does not show any fractures or acute problems. Alternate ice and heat to the area of pain on your knee to help reduce pain and inflammation. Wear knee immobilizer when up and about. Ibuprofen 600 mg and Tylenol 650 mg every 6 hours for pain. For best results, alternate between the ibuprofen and Tylenol every 3-4 hours. You have been provided with a take-home pack of [place], which she may take 1 tablet every 6 hours as needed for SEVERE pain. This is a narcotic, do not drive, operate machinery, or drink alcohol while you are taking this medication. This is a one-time prescription, he will not be able to receive refills from the emergency department. If you need additional medication to manage her pain, you should discuss this with your primary doctor. Please follow-up with your primary care provider or orthopedics for further evaluation and treatment - call for appointment. Please return to the emergency department for severe worsening pain, if the knee becomes severely swollen, red, hot to touch, if you are not able to bend or straighten the knee because of severe swelling or pain, or if you develop fevers/chills, or for any other concerns. Work Instructions Return To Work: 2 days Problem Qualifiers Primary Impression: Knee pain Chronicity: acute Laterality: left Qualified Codes: M25.562 - Pain in left knee
[2017-12-07] MEDS ORDERED: [UNRECOGNIZED DRUG - OTHER] PO (22:27)
[2017-12-07] MEDS ORDERED: ACET-1256 PO (22:27)
--- NOTE | 2017-12-07 22:36 | DIAGNOSTIC IMAGING REPORT ---
LEFT KNEE 3 VIEWS HISTORY: anterior knee pain, include sunrise view COMPARISON: Left knee 09/19/2016. FINDINGS: There is no fracture or dislocation. Soft tissues are unremarkable. No radiopaque foreign bodies. No knee effusion. IMPRESSION: No fractures. Electronically signed by: Tony Olvera M.D. 12/07/2017 10:35 PM Dictated Date/Time: 12/07/2017 10:34 PM
[2017-12-07 22:57] VITALS: BP 139/88; PULSE 64; O2SAT 95
[2017-12-07] MEDS ORDERED: NORCO 5/325MG HOME PACK PO ONE (23:00)
== END 2017-12-07 22:58 | disposition home or self-care (01) ==
LOC: C.EDB 21:05 → C.EDD 22:58
DX: M25.562 Pain in left knee (principal); E11.9 Type 2 diabetes mellitus without complications; Z97.0 Presence of artificial eye; M54.12 Radiculopathy, cervical region; F32.9 Major depressive disorder, single episode, unspecified; E78.5 Hyperlipidemia, unspecified; R91.8 Other nonspecific abnormal finding of lung field; Z79.82 Long term (current) use of aspirin; Z79.84 Long term (current) use of oral hypoglycemic drugs; Z79.899 Other long term (current) drug therapy

== ENCOUNTER 2019-09-24 01:46 | Observation (INO) ==
[2019-09-24] MEDS ORDERED: NITROGLYCERIN SL 0.4 MG/TAB TAB SL PRN ×2 (02:26→05:42)
[2019-09-24] MEDS ORDERED: ASPIRIN CHEW 324 MG PO STA (02:26)
[2019-09-24 02:42] LABS: Basophils # (auto) 0.02 K/uL (0-0.2); Basophils % (auto) 0.2 %; Eosinophils # (auto) 0.09 K/uL (0-0.5); Hematocrit (blood only) 43.6 % (42-52); Hemoglobin 14.9 g/dL (14.0-18.0); Immature Granulocytes # (auto) 0.02 K/uL (0.00-0.02); Immature Granulocytes % (auto) 0.2 %; Lymphocytes # (auto) 3.27 K/uL (1.2-3.4); Lymphocytes % (auto) 37.2 %; Mean Corpuscular Hgb Conc 34.2 g/dL (32-36); Mean Corpuscular Volume 90.8 fL (80-100); Mean Platelet Volume 9.1 fL (7.4-10.4); Monocytes # (auto) 0.79 K/uL (0.11-0.59); Neutrophils # (auto) 4.59 K/uL (1.4-6.5); Neutrophils % (auto) 52.4 %; Platelet Count 308 K/uL (130-400); RDW Coefficient of Variation 12.7 % (11.5-14.5); RDW Standard Deviation 42.1 fL (36.4-46.3); White Blood Count 8.78 K/uL (4.8-10.8)
[2019-09-24 02:50] LABS: Alanine Aminotransferase 34 U/L (12-78); Albumin Level 3.6 gm/dl (3.4-5.0); Aspartate Aminotransferase 18 U/L (15-37); BUN Creatinine Ratio 14.8 (10-20); Blood Urea Nitrogen 21 mg/dl (7-18); Calcium 9.1 mg/dl (8.5-10.1); Carbon Dioxide 29 mmol/L (21-32); Chloride 101 mmol/L (98-107); Est GFR (African American) 66.9; Est GFR (Non-African American) 57.8; Glucose 164 mg/dl (70-99); Lipase 120 U/L (73-393); Sodium 137 mmol/L (136-145)
[2019-09-24 02:55] LABS: Alkaline Phosphatase 56 U/L (45-117); Bilirubin,Total 0.4 mg/dl (0.2-1); Globulin 3.5 gm/dl (2.5-4.0); Total Protein 7.1 gm/dl (6.4-8.2); Troponin I < 0.015 ng/ml (0-0.045)
[2019-09-24 02:59] LABS: Partial Thromboplastin Ratio 0.9; Prothrombin Time 10.7 Seconds (9.0-12.0)
--- NOTE | 2019-09-24 05:33 | History & Physical Report ---
Date of Service September 24, 2019 Assessment & Plan (1) Chronic obstructive pulmonary disease: Manjit Myrick is a 53 year old man with a pmh of CAD, HTN, HLD, COPD, GERD, MANDEEP, DMII here for chest pain. Chest Pain In Setting Of Known Coronary Artery Disease Atypical Presentation, negative troponin after multiple hours of symptoms, however patient with known history of CAD and multitude of risk factors ECG negative for actue ischemic change, pain is not reproducible on phsyical exam and is not present currently Cardiology consulted, stress echo ordered Will continue to trend troponins For any new chest pain will get ECG and give nitro Will continue ASA, lisinopril, metoprolol, not on statin 2/2 adverse reaction HLD Will check lipid panel in am Patient not on statin and is listed as an allergy DMII D/C'd home metformin and glyburide Placed on sliding scale Will check A1C in am MANDEEP Willl order CPAP for patient DVT PPx: SCD's F/E/N: NPO pending cardiology evaluation for potential catheterization NSS +20 meq KCl at 100 mls/hour Disposition: Observation on tele will trend tropes and perform stress echo to at tempt to rule out ischemic heart disease. Full Code (2) GERD (gastroesophageal reflux disease): (3) Kidney stones: (4) Migraine: (5) Sleep apnea: (6) CAD (coronary atherosclerotic disease): (7) HTN (hypertension): History of Present Illness Primary Care Provider: Margo Martinez PA-C Manjit Myrick is a 53 year old man with a past medical history significant for HTN, DMII, HLD, CKD, NAFLD, Prosthetic right eye, Depression, pulmonary nodules, inguinal hernia, MANDEEP, memory difficulties and known CAD who presents with a one day history of chest pain. Patient first noted chest pain in middle of his chest at work today. Says it was similar to gas pain or dehydration cramping pain that he gets from time to time but would not go away. He could not link this pain with exertion, rest, any position or breathing but it just seemed to be more or less present from [id number] today. He could not describe the pain but said that it was more sharp than pressure and moved directly through to his back. This pain went away and then came back early this morning before bedtime which prompted him to present to the emergency department. He doesn't remember exactly but tells me he thinks it had resolved by the time he made it to the ED. He was given nitroglycerin and ASA and ECG was obtained showing no acute ischemic changes. He had a normal appearing chest x ray and labwork was unremarkable including a normal troponin. He has trouble remembering his history but knows that he has been told her has heart disease in the past. He tells me he has never had a heart attack but had a stress test and a regular echocardiogram that were negative. Reviewing [facility] records patient has been followed by Dr. Valladares who reports patient did have cath done in 2014 which showed no significant LAD disease, ramus disease, or disease in the nondominant circumlfex and mild luminal irregularities in the right coronary artery with a discrete 90% stenosis in the proximal portion of the second posterolateral branch. Echo from two years ago showing preserved cardiac function with EF of about 65. He has a history of COPD has not been on O2, he smoked a pack and a half a day for 30 years but has recently stopped. 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 He works at a [employer]. Mom may have had a stroke or heart attack unsure Allergies Allergy/AdvReac Type Severity Reaction Status Date / Time Rzjhsuo-Foo-Ktu Reductase Allergy Unknown Verified 09/24/19 03:15 Inhibitor Home Medications Home Medications Medication Instructions Recorded Confirmed Type lisinopril 10 mg PO QAM 06/08/18 09/24/19 History metformin 1,000 mg PO QAM 06/08/18 09/24/19 History metoprolol succinate 25 mg PO QAM 06/08/18 09/24/19 History aspirin 81 mg PO QAM 12/07/18 09/24/19 History glyburide 2.5 mg PO QAM 12/07/18 09/24/19 History cyclobenzaprine 10 mg PO TID PRN #15 tab 02/02/19 09/24/19 Rx citalopram 20 mg PO DAILY 09/24/19 09/24/19 History ibuprofen 800 mg PO TID PRN 09/24/19 09/24/19 History pramipexole 0.5 - 0.75 mg PO HS 09/24/19 09/24/19 History Past Med/Surg History Medical History Blindness of one eye (Chronic 10/29/12) "R eye prosthesis" CAD (coronary atherosclerotic disease) (Chronic) Cervical radiculopathy (Chronic) Chronic obstructive pulmonary disease (Chronic) Chronic obstructive pulmonary disease (Resolved) Chronic obstructive pulmonary disease (Resolved) Diabetes mellitus, type 2 (Resolved) DJD (degenerative joint disease) of cervical spine (Chronic) DM type 2 (diabetes mellitus, type 2) (Chronic) Dyslipidemia (Chronic) GERD (gastroesophageal reflux disease) (Chronic) GERD (gastroesophageal reflux disease) (Resolved) GERD (gastroesophageal reflux disease) (Resolved) History of coronary artery disease (Chronic) History of multiple pulmonary nodules (Chronic) "CT chest 11/25/12- multiple bilateral pulmonary nodules, largest in LLL" HTN (hypertension) (Chronic) Hypertension (Resolved) Kidney stones (Resolved) Kidney stones (Resolved) Kidney stones (Resolved) Migraine (Chronic) Migraine (Resolved) Migraine (Resolved) Sleep apnea (Chronic) cpap Sleep apnea (Resolved) cpap Sleep apnea (Resolved) cpap Surgical History History of carpal tunnel release of both wrists (Resolved) History of colonoscopy (Resolved) History of eye prosthesis (Resolved) right History of inguinal hernia repair (Chronic 11/23/12) History of left inguinal hernia repair (Resolved) History of left inguinal hernia repair (Resolved) History of left inguinal hernia repair (Resolved) History of open reduction and internal fixation (ORIF) procedure (Resolved) right hand--hardware in place History of open reduction and internal fixation (ORIF) procedure (Resolved) right hand--hardware in place History of open reduction and internal fixation (ORIF) procedure (Resolved) right hand--hardware in place History of wisdom tooth extraction (Resolved) History of wisdom tooth extraction (Resolved) History of wisdom tooth extraction (Resolved) Social History Preferred Language: Turkish Communication Ability: Effective Real Estate Loan Processor Required: No Beliefs That Will Affect Care: None Current Living Situation: Spouse Current Living Situation Comment: lives with and 2 kids Feels Safe at Home: Yes Smoking Status: Light tobacco smoker Tobacco Type: cigarettes ; Cigarettes Per Day: 2 a day ; Second Hand Exposure: Yes (parents smoked) ; Hx Alcohol Use: Yes Hx Substance Use: No Review of Systems Constitutional: no fever, no chills, no sweats, no fatigue and no weakness Eyes: no problem reported Ear, Nose, Mouth, Throat: no problem reported Respiratory: no problem reported Cardiovascular: as per Subjective / HPI Gastrointestinal: + nausea and + vomiting (One episode of vomitus); no abdominal pain, no constipation and no diarrhea/loose stools Genitourinary: no dysuria and no urinary frequency Neurologic: Forgetful Physical Exam Physical Exam: Constitutional: Obese 53 year old man in no acute distress lying in bed watching television, easily able to converse Eyes: Prosthetic eye on right, left pupil reactive to light and accomodation, EOMMI REspiratory: No increased work of breathing, breath sounds rhoncorous with mild expiratory wheeze. Cardiovascular: HEart sounds dual, regular rate regular rhythm, no murmurs, rubs, skips or gallops, peripheral pulses intact and equal GI: Abdomen obese, soft and nontender, no masses or organomegaly Skin: Warm dry intact Neuro: AA and oriented x 4, forgetful in his history says his usually helps him Results & Data Results & Data ([facility]) Vital Signs (Past 12 Hours) Vital Signs Temp Pulse Pulse Resp BP BP Pulse Ox 09/24/19 03:40 69 18 109/74 93 09/24/19 02:29 94 09/24/19 02:12 95 09/24/19 01:49 36.8 C 67 18 145/77 H 94 Code Status & VTE Plan VTE Prophylaxis Plan VTE Prophylaxis will be ordered: Yes Supervising Physician Co-Signing Physician Notes Attending addendum: I have physically seen this patient, have supervised the medical residents activities, and agree with the H&P unless as otherwise noted. Assessment and Plan: Chest pain/CAD/hypertension- The patient will be admitted to telemetry for serial cardiac enzymes, serial EKG's, cardiac rhythm monitoring and a 2-D echocardiogram with Dopplers. Continue aspirin 81 mg daily, lisinopril 10 mg daily, and metoprolol succinate 25 mg p.o. daily. Diabetes mellitus- Hold glyburide and metformin. Place on Accu-Cheks before meals and at bedtime with NovoLog coverage per scale. RLS- Continue pramipexole 0.5 mg p.o. at bedtime Remaining orders and notations as noted. Resident Activity Tracking Resident Involvement: Resident Care Provided Care Provided: [facility]
[2019-09-24] MEDS ORDERED: GLUCOSE 40% GEL 15 GM TUBE PO PRN (05:42)
[2019-09-24] MEDS ORDERED: GLUCAGON FOR INJ 1 MG VIAL SQ PRN (05:42)
[2019-09-24] MEDS ORDERED: MoRPHine SULFATE 2 MG/ML CARP IV PRN (05:42)
[2019-09-24] MEDS ORDERED: CARBOHYDRATES FOR HYPOGLYCEMIA PO PRN (05:42)
[2019-09-24] MEDS ORDERED: DC ALL PREVIOUSLY ORDERED DIABETES MEDS ONE (05:42)
[2019-09-24] MEDS ORDERED: ONDANSETRON INJ 2 MG/ML 2 ML VIAL IV PRN (05:42)
[2019-09-24] MEDS ORDERED: ACETAMINOPHEN 325 MG TAB PO PRN (05:42)
[2019-09-24] MEDS ORDERED: NSS + 20MEQ KCL 20 MEQ/1,000 ML BAG IV SCH (05:42)
[2019-09-24] MEDS ORDERED: DEXTROSE 50% 50 ML SYRINGE IV PRN (05:42)
[2019-09-24] MEDS ORDERED: POLYETHYLENE (MIRALAX) 17 GM PACK PO PRN (05:42)
[2019-09-24] MEDS ORDERED: GLUCOSE 10 TABS/TUBE PO PRN (05:42)
[2019-09-24] MEDS ORDERED: CYCLOBENZAPRINE HCL 10 MG TAB PO PRN (05:48)
--- NOTE | 2019-09-24 06:17 | Emergency Department Note ---
History of Present Illness General Chief complaint: Chest Pain Stated complaint: CHEST PAIN Source: patient Mode of arrival: ambulatory Limitations: no limitations History of Present Illness Provider complaint: Chest pain Onset (ago): hour(s) (12) Maximum Pain Intensity: 2 This patient is a 53-year-old male who presents emergency department with complaints of chest pain that radiates to the left jaw and upper back. Patient states he noticed the pain while at work at approximately 3 PM. Pain seemed to wax and wane and did not become too disturbing. Approximately 11 PM tonight, the patient developed a sharp stabbing pain in the left side of the chest radiating to the back and to the jaw. Patient admits to shortness of breath during this episode. He denies any medications except aspirin 81 mg earlier this morning. Patient denies any nausea, vomiting, abdominal pain or blood in the stools. Home Medications Home Medications Medication Instructions Recorded Confirmed Type lisinopril 10 mg PO QAM 06/08/18 09/24/19 History metformin 1,000 mg PO QAM 06/08/18 09/24/19 History metoprolol succinate 25 mg PO QAM 06/08/18 09/24/19 History aspirin 81 mg PO QAM 12/07/18 09/24/19 History glyburide 2.5 mg PO QAM 12/07/18 09/24/19 History cyclobenzaprine 10 mg PO TID PRN #15 tab 02/02/19 09/24/19 Rx citalopram 20 mg PO DAILY 09/24/19 09/24/19 History ibuprofen 800 mg PO TID PRN 09/24/19 09/24/19 History pramipexole 0.5 - 0.75 mg PO HS 09/24/19 09/24/19 History Allergies Allergy/AdvReac Type Severity Reaction Status Date / Time Odaevvw-Psd-Muu Reductase Allergy Unknown Verified 09/24/19 03:15 Inhibitor Past Med/Surg History Medical History Blindness of one eye (Chronic 10/29/12) "R eye prosthesis" CAD (coronary atherosclerotic disease) (Chronic) Cervical radiculopathy (Chronic) Chronic obstructive pulmonary disease (Chronic) Chronic obstructive pulmonary disease (Resolved) Chronic obstructive pulmonary disease (Resolved) Diabetes mellitus, type 2 (Resolved) DJD (degenerative joint disease) of cervical spine (Chronic) DM type 2 (diabetes mellitus, type 2) (Chronic) Dyslipidemia (Chronic) GERD (gastroesophageal reflux disease) (Chronic) GERD (gastroesophageal reflux disease) (Resolved) GERD (gastroesophageal reflux disease) (Resolved) History of coronary artery disease (Chronic) History of multiple pulmonary nodules (Chronic) "CT chest 11/25/12- multiple bilateral pulmonary nodules, largest in LLL" HTN (hypertension) (Chronic) Hypertension (Resolved) Kidney stones (Resolved) Kidney stones (Resolved) Kidney stones (Resolved) Migraine (Chronic) Migraine (Resolved) Migraine (Resolved) Sleep apnea (Chronic) cpap Sleep apnea (Resolved) cpap Sleep apnea (Resolved) cpap Surgical History History of carpal tunnel release of both wrists (Resolved) History of colonoscopy (Resolved) History of eye prosthesis (Resolved) right History of inguinal hernia repair (Chronic 11/23/12) History of left inguinal hernia repair (Resolved) History of left inguinal hernia repair (Resolved) History of left inguinal hernia repair (Resolved) History of open reduction and internal fixation (ORIF) procedure (Resolved) right hand--hardware in place History of open reduction and internal fixation (ORIF) procedure (Resolved) right hand--hardware in place History of open reduction and internal fixation (ORIF) procedure (Resolved) right hand--hardware in place History of wisdom tooth extraction (Resolved) History of wisdom tooth extraction (Resolved) History of wisdom tooth extraction (Resolved) Social History Preferred Language: Slovenian Communication Ability: Effective Bulb Inspector Required: No Beliefs That Will Affect Care: None Current Living Situation: Spouse Current Living Situation Comment: lives with and 2 kids Other Information That Helps Us Care for You: No Feels Safe at Home: Yes Smoking Status: Light tobacco smoker Tobacco Type: cigarettes ; Cigarettes Per Day: 2 a day ; Second Hand Exposure: Yes (parents smoked) ; Hx Alcohol Use: Yes Hx Substance Use: No Review of Systems See HPI for pertinent positives & negatives. and A total of 10 systems reviewed and were otherwise negative Physical Exam Vital Signs Vital Signs - 24 hr 09/24/19 01:49 09/24/19 02:12 09/24/19 02:29 Temperature 36.8 C Temperature Source Oral Pulse Rate 67 Pulse Rate [Right Finger] Respiratory Rate 18 Respiratory Effort / Characteristics Non-Labored Spontaneous Respiratory Depth Normal Blood Pressure 145/77 H Blood Pressure [Right Arm] Blood Pressure Mean 99 Blood Pressure Mean [Right Arm] Blood Pressure Position [Right Arm] Pulse Oximetry 94 95 94 Oxygen Delivery Method Room Air Room Air Room Air Sepsis Recent Fever Within 48 Hours No Sepsis Action Taken by Nursing No Action Required 09/24/19 03:40 Temperature Temperature Source Pulse Rate Pulse Rate [Right Finger] 69 Respiratory Rate 18 Respiratory Effort / Characteristics Respiratory Depth Normal Blood Pressure Blood Pressure [Right Arm] 109/74 Blood Pressure Mean Blood Pressure Mean [Right Arm] 85 Blood Pressure Position [Right Arm] Lying Pulse Oximetry 93 Oxygen Delivery Method Room Air Sepsis Recent Fever Within 48 Hours Sepsis Action Taken by Nursing flibr Vital signs reviewed. General: Well-appearing 53 yo male, in no significant distress. HEENT: No scleral icterus, PERRLA, neck supple. Atraumatic. Cardiovascular: Regular rate and rhythm, no extra sounds. Pulmonary: Clear to auscultation bilaterally, normal work of breathing. Abdomen: Soft, nontender, nondistended, positive bowel sounds. Musculoskeletal: Atraumatic, no peripheral edema. Nontender to palpation over the anterior chest wall. Neurologic: Patient awake alert and oriented x 3 Skin: Warm, dry, no rash Course Administered Medications Discontinued Medications Aspirin (Aspirin) 324 mg PO NOW STA Stop: 09/24/19 02:27 Last Admin: 09/24/19 02:41 Dose: 324 mg Documented by: [id number] Nitroglycerin (Nitrostat) 0.4 mg SL UD PRN PRN Reason: Chest Pain Stop: 10/24/19 02:25 Last Admin: 09/24/19 02:41 Dose: 0.4 mg Documented by: [id number] Medical Decision Making Differential Diagnosis Differential diagnosis: Etiologies such as cardiac ischemia, aortic dissection, pulmonary embolism, pneumonia, pneumothorax, musculoskeletal, infections, pericarditis, myocarditis, esophageal rupture, gastrointestinal, as well as others were entertained. Physical examination: As above. ER treatment provided: [] On reassessment the patient felt better. Diagnostic interpretation by me: The electrocardiogram was negative for pathologic change. The labs revealed [] Imaging studies: Chest x-ray as above Consultation: A consultation was placed with the hospitalist. The case was discussed and diagnostics were reviewed. The patient was evaluated in the ER for further treatment. By the evaluation outlined above emergent etiologies such as cardiac ischemia, aortic dissection, pulmonary embolism, pneumonia, pneumothorax, infections, pericarditis, myocarditis, gastrointestinal, as well as others were deemed relatively unlikely. The [] informed about the findings as listed above. All questions were answered and [] pleased with the treatment. Return instructions were outlined and the patient was discharged in stable condition. Outpatient prescription management: [] Referral: The patient was referred back to [] primary care physician for follow-up in 2 to 3 days for a recheck of the current condition. The chart was completed utilizing [employer] voice recognition software. Grammatical errors, random word insertions, pronoun errors, and incomplete sentences are an occasional consequence of this system due to software limitations, ambient noise, and hardware issues. Any formal questions or concerns about the content, text, or information contained within the body of this dictation should be directly addressed to the physician for clarification. Home Medications Current Medication List: was personally reviewed by me Laboratory Data Attestation: I reviewed the patient's lab results. Result diagrams: 09/24/19 02:07 09/24/19 02:07 Lab Results 09/24/19 09/24/19 09/24/19 Range/Units 02:07 02:07 02:07 WBC 8.78 (4.8-10.8) K/uL RBC 4.80 (4.7-6.1) M/uL Hgb 14.9 (14.0-18.0) g/dL Hct 43.6 (42-52) % MCV 90.8 (80-100) fL MCH 31.0 (25-34) pg MCHC 34.2 (32-36) g/dL RDW Std Deviation 42.1 (36.4-46.3) fL RDW Coeff of Jesse 12.7 (11.5-14.5) % Plt Count 308 (130-400) K/uL MPV 9.1 (7.4-10.4) fL Immature Gran % (Auto) 0.2 % Neut % (Auto) 52.4 % Lymph % (Auto) 37.2 % [place] % (Auto) 9.0 % Eos % (Auto) 1.0 % Baso % (Auto) 0.2 % Immature Gran # (Auto) 0.02 (0.00-0.02) K/uL Neut # (Auto) 4.59 (1.4-6.5) K/uL Lymph # (Auto) 3.27 (1.2-3.4) K/uL [place] # (Auto) 0.79 H (0.11-0.59) K/uL Eos # (Auto) 0.09 (0-0.5) K/uL Baso # (Auto) 0.02 (0-0.2) K/uL PT 10.7 (9.0-12.0) Seconds INR 1.0 (0.9-1.1) APTT 25.0 (21.0-31.0) Seconds PTT Ratio 0.9 Sodium 137 (136-145) mmol/L Potassium 4.0 (3.5-5.1) mmol/L Chloride 101 (98-107) mmol/L Carbon Dioxide 29 (21-32) mmol/L Anion Gap 7.0 (3-11) BUN 21 H (7-18) mg/dl Creatinine 1.40 (0.6-1.4) mg/dl Est Cr Clr Drug Dosing 75.0 ml/min Est GFR ( Amer) 66.9 Est GFR (Non-Af Amer) 57.8 BUN/Creatinine Ratio 14.8 (10-20) Glucose 164 H (70-99) mg/dl Calcium 9.1 (8.5-10.1) mg/dl Total Bilirubin 0.4 (0.2-1) mg/dl AST 18 (15-37) U/L ALT 34 (12-78) U/L Alkaline Phosphatase 56 (45-117) U/L Troponin I < 0.015 (0-0.045) ng/ml Total Protein 7.1 (6.4-8.2) gm/dl Albumin 3.6 (3.4-5.0) gm/dl Globulin 3.5 (2.5-4.0) gm/dl Albumin/Globulin Ratio 1.0 (0.9-2) Lipase 120 (73-393) U/L Imaging Data Attestation: I personally reviewed and interpreted this imaging study as follows: My Impression: Chest x-ray to my interpretation reveals no evidence of focal lung consolidation or failure. ECG Data Attestation: I personally reviewed and interpreted this ECG as follows: Indication: + chest pain Rate (beats per minute): 67 Rhythm: + normal sinus ECG Intervals/blocks: + Normal QT ECG ST segments: + Normal ST segments; no T-wave inversions ECG Findings: + Other (Nonspecific T wave abnormality); no PACs and no PVCs Blood Pressure Blood Pressure Findings: Normal blood pressure Blood Pressure Disposition: did not require urgent referral MDM Narrative An order for cardiac monitoring was placed and the patient is found to be in a sinus rhythm without ectopy or acute ischemia. Patient did receive aspirin to chew and also nitroglycerin trial with some success. Patient's initial cardiac enzyme is negative. Chest x-ray was clear. EKG reveals no evidence of acute ischemic change. Patient remained comfortable in the emergency department. Given his history of diabetes, smoking and hypertension along with his stated history of CAD, patient will be evaluated by the hospitalist service for further management. Patient is aware of this plan and agrees. Impression & Plan Substernal chest pain Discharge Plan Visit Data *Final* Discharge Date/Time: 09/24/19 05:22 Chief Complaint: Chest Pain Stated Complaint: CHEST PAIN ED Provider: Annie Palacios Discharge Problem: Substernal chest pain Patient Disposition: Admitted As Inpatient Discharge Instructions Interventions: ED Discharge Assessment Last Done: 09/24/19 05:22
[2019-09-24 06:59] LABS: Chol HDL Ratio 8; Cholesterol 241 mg/dl (0-200); HDL Cholesterol 32 mg/dl; LDL Cholesterol Calculated 130 mg/dl; Triglycerides 396 mg/dl (0-150); VLDL Cholesterol 79 mg/dl
--- NOTE | 2019-09-24 07:12 | XRay Report ---
XR chest 1V portable CLINICAL HISTORY: 53 years-old Male presenting with Chest Pain. TECHNIQUE: Portable upright AP view of the chest was obtained. COMPARISON: 06/29/2019. FINDINGS: Cardiomediastinal silhouette normal. Mild interstitial prominence. No focal opacity. No large effusio n or pneumothorax. Osseous structures normal. IMPRESSION: 1. Mild interstitial prominence may suggest mild congestion, developing interstitial infiltrate, or artifact due to portable AP technique. If there is concern, PA and lateral views could be obtained. ACT 112: Negative or not required by law. Electronically signed by: Derrell Ochoa M.D. 09/24/2019 7:10 AM
[2019-09-24] MEDS ORDERED: INSULIN ASPART 100 UNITS/ML 3 ML PEN SC SCH (07:30)
--- NOTE | 2019-09-24 08:49 | XCELERA ---
[id number]
[2019-09-24] MEDS ORDERED: lisinopriL 10 MG TAB PO SCH (09:00)
[2019-09-24] MEDS ORDERED: METOPROLOL SUCC 25MG EXT REL TAB PO SCH (09:00)
[2019-09-24] MEDS ORDERED: ASPIRIN 81 MG ECTAB PO SCH (09:00)
[2019-09-24] MEDS ORDERED: CITALOPRAM 20 MG TAB PO SCH (09:00)
--- NOTE | 2019-09-24 10:25 | Cardiology Consultation ---
Date of Consultation September 24, 2019 Assessment & Plan (1) Atypical chest pain: Patient's initial symptoms of chest pain were quite atypical. These were very fleeting and involved random areas throughout the lower chest wall. They were nonexertional and not very characteristic for ischemic heart disease. The 1 severe episode lasted somewhat longer was also atypical both location as well as character. He had another fleeting episode of similar discomfort which suggests this is also noncardiac in nature. There were no objective signs of ischemia either on EKG or by biomarker elevation. While he does have a history of coronary disease discovered in 2014, I think the likelihood that his current symptoms are ischemic heart disease is quite low. I would favor letting him ambulate around the [place] today. Without any recurrence of his symptoms I think he can be safely discharged. He has scheduled follow-up already next week with his shirring tender Dr. Valladares. (2) CAD (coronary atherosclerotic disease): According to his record he underwent coronary angiography in 2014. He cannot recall the circumstances or even where his cardiac catheterization was performed. However, there are reports that he has branch vessel disease involving the posterior lateral portion of the right coronary artery. He does not appear to have angina with exertion. He is not appear to have symptoms related to this known coronary disease. He has been maintained on a medical regimen of aspirin and metoprolol. It seems he has been tried on agents for cholesterol including statin therapy and Zetia but developed intolerances. History of Present Illness Reason for Consultation: Chest pain Requesting Physician: Michelle Attending Physician: Margo Rousseau, History of Present Illness Patient is a 53-year-old gentleman with a history of breast vessel coronary who was admitted to the hospital with complaints of chest discomfort. Patient states that yesterday during work he began to experience sharp and fleeting pains throughout the lower portion of his chest. This discomfort was present in multiple locations both right and left lower chest. It lasted only a few seconds by report it was not associated with deep breathing. Did not appear to be associated with any specific activity. Patient states that he had this discomfort for several hours intermittently in in between actually felt well. He completed work and went home. He states that he was about to take a shower when he experienced a more severe and sudden discomfort in the left lower lateral thorax. This discomfort shot through to his back. Describes it is fairly severe and lasting for approximately 15 minutes. Again, it was not pleuritic in nature and did not vary with changes in position. It eventually resolved. However, his recommended in emergency room evaluation and he presented to [facility] shortly thereafter. He states that he did have 1 recurrent episode of chest discomfort while in the emergency room, but this only lasted for few seconds. Recently the patient has been feeling more short of breath at work. However, he attributes this to having wearing a mask. Feels that he has great difficulty breathing with the mask on and struggles to take deep breaths. He feels that this in some fashion leads to some chest pains due to increased work of breathing. He also claims to frequently be dehydrated at work and by report loses 1-2 pounds every day at work. Claims has a physical job and generally does not have symptoms of chest discomfort or exertional symptoms. He denies symptoms of breathing difficulty. He generally does not have dizziness or lightheadedness. He did relate 1 episode of syncope which she believes occurred 1 year ago. He states that this happened while he was on his porch. He cannot remember any specific triggers or other details of the event. He has not had any recurrence. Currently he is feeling well. He is not having symptoms of chest discomfort. No pleuritic pain. He has not been out of better ambulatory yet. Allergies Allergy/AdvReac Type Severity Reaction Status Date / Time [id number]-[id number]-Kcf Reductase Allergy Unknown Verified 09/24/19 03:15 Inhibitor Home Medications Home Medications Medication Instructions Recorded Confirmed Type lisinopril 10 mg PO QAM 06/08/18 09/24/19 History metformin 1,000 mg PO QAM 06/08/18 09/24/19 History metoprolol succinate 25 mg PO QAM 06/08/18 09/24/19 History aspirin 81 mg PO QAM 12/07/18 09/24/19 History glyburide 2.5 mg PO QAM 12/07/18 09/24/19 History cyclobenzaprine 10 mg PO TID PRN #15 tab 02/02/19 09/24/19 Rx citalopram 20 mg PO DAILY 09/24/19 09/24/19 History ibuprofen 800 mg PO TID PRN 09/24/19 09/24/19 History pramipexole 0.5 - 0.75 mg PO HS 09/24/19 09/24/19 History Patient History Medical History Blindness of one eye (Chronic 10/29/12) "R eye prosthesis" CAD (coronary atherosclerotic disease) (Chronic) Cervical radiculopathy (Chronic) Chronic obstructive pulmonary disease (Chronic) Chronic obstructive pulmonary disease (Resolved) Chronic obstructive pulmonary disease (Resolved) Diabetes mellitus, type 2 (Resolved) DJD (degenerative joint disease) of cervical spine (Chronic) DM type 2 (diabetes mellitus, type 2) (Chronic) Dyslipidemia (Chronic) GERD (gastroesophageal reflux disease) (Chronic) GERD (gastroesophageal reflux disease) (Resolved) GERD (gastroesophageal reflux disease) (Resolved) History of coronary artery disease (Chronic) History of multiple pulmonary nodules (Chronic) "CT chest 11/25/12- multiple bilateral pulmonary nodules, largest in LLL" HTN (hypertension) (Chronic) Hypertension (Resolved) Kidney stones (Resolved) Kidney stones (Resolved) Kidney stones (Resolved) Migraine (Chronic) Migraine (Resolved) Migraine (Resolved) Sleep apnea (Chronic) cpap Sleep apnea (Resolved) cpap Sleep apnea (Resolved) cpap Surgical History History of carpal tunnel release of both wrists (Resolved) History of colonoscopy (Resolved) History of eye prosthesis (Resolved) right History of inguinal hernia repair (Chronic 11/23/12) History of left inguinal hernia repair (Resolved) History of left inguinal hernia repair (Resolved) History of left inguinal hernia repair (Resolved) History of open reduction and internal fixation (ORIF) procedure (Resolved) right hand--hardware in place History of open reduction and internal fixation (ORIF) procedure (Resolved) right hand--hardware in place History of open reduction and internal fixation (ORIF) procedure (Resolved) right hand--hardware in place History of wisdom tooth extraction (Resolved) History of wisdom tooth extraction (Resolved) History of wisdom tooth extraction (Resolved) Social History Preferred Language: Romansh Communication Ability: Effective Kier Tender Required: No Beliefs That Will Affect Care: None Current Living Situation: Spouse Current Living Situation Comment: lives with and 2 kids Other Information That Helps Us Care for You: No Feels Safe at Home: Yes Smoking Status: Light tobacco smoker Tobacco Type: cigarettes ; Cigarettes Per Day: 2 a day ; Second Hand Exposure: Yes (parents smoked) ; Hx Alcohol Use: Yes Hx Substance Use: No Review of Systems Review of Systems: All systems reviewed & are unremarkable except as noted in HPI & below Per HPI. Recent cataract surgery that was uneventful Physical Exam Physical Exam: The patient is alert and oriented. Mood and affect appeared normal. He answered all questions appropriately. HEENT: Right eye is prosthetic. Left eye is anicteric. Normal pupillary response. Normal extraocular movements. Neuro: Cranial nerves intact Neck: Patient's neck is supple. He has palpable carotid pulses bilaterally without bruits on auscultation. There is no evidence of jugular venous distention. The thyroid is not enlarged. Lungs: No rales. Some expiratory wheezing. Normal respiratory effort. Cardiac: Heart demonstrates a regular rate and rhythm. Normal S1 and S2. No murmurs on examination. Pulses: The patient has palpable radial pulses bilaterally that are equal in intensity Extremities: There was no evidence of hypoperfusion. There is no cyanosis or clubbing. There is no edema. Skin: I did not appreciate any rashes on examination today. Results & Data ([facility]) Vital Signs (Past 12 Hours) Vital Signs Temp Pulse Pulse Resp BP BP BP 09/24/19 08:03 36.4 C L 52 L 18 112/75 09/24/19 07:15 63 09/24/19 06:26 61 09/24/19 05:34 36.8 C 67 18 130/79 09/24/19 05:22 68 18 110/75 09/24/19 03:40 69 18 109/74 09/24/19 02:29 09/24/19 02:12 09/24/19 01:49 36.8 C 67 18 145/77 H Pulse Ox 09/24/19 08:03 95 09/24/19 07:15 09/24/19 06:26 09/24/19 05:34 94 09/24/19 05:22 95 09/24/19 03:40 93 09/24/19 02:29 94 09/24/19 02:12 95 09/24/19 01:49 94 Laboratory Results Abnormal Lab Results 09/24/19 09/24/19 09/24/19 02:01 02:07 02:07 WBC 8.78 RBC 4.80 Hgb 14.9 Hct 43.6 MCV 90.8 MCH 31.0 MCHC 34.2 RDW Std Deviation 42.1 RDW Coeff of Jesse 12.7 Plt Count 308 MPV 9.1 Immature Gran % (Auto) 0.2 Neut % (Auto) 52.4 Lymph % (Auto) 37.2 [place] % (Auto) 9.0 Eos % (Auto) 1.0 Baso % (Auto) 0.2 Immature Gran # (Auto) 0.02 Neut # (Auto) 4.59 Lymph # (Auto) 3.27 [place] # (Auto) 0.79 H Eos # (Auto) 0.09 Baso # (Auto) 0.02 PT 10.7 INR 1.0 APTT 25.0 PTT Ratio 0.9 Sodium Potassium Chloride Carbon Dioxide Anion Gap BUN Creatinine Est Cr Clr Drug Dosing Est GFR ( Amer) Est GFR (Non-Af Amer) BUN/Creatinine Ratio Glucose POC Glucose Calcium Total Bilirubin AST ALT Alkaline Phosphatase Troponin I Total Protein Albumin Globulin Albumin/Globulin Ratio Triglycerides 396 H Cholesterol 241 H LDL Cholesterol, Calc 130 VLDL Cholesterol, Calc 79 HDL Cholesterol 32 Cholesterol/HDL Ratio 8 Lipase 09/24/19 09/24/19 02:07 07:44 WBC RBC Hgb Hct MCV MCH MCHC RDW Std Deviation RDW Coeff of Jesse Plt Count MPV Immature Gran % (Auto) Neut % (Auto) Lymph % (Auto) [place] % (Auto) Eos % (Auto) Baso % (Auto) Immature Gran # (Auto) Neut # (Auto) Lymph # (Auto) [place] # (Auto) Eos # (Auto) Baso # (Auto) PT INR APTT PTT Ratio Sodium 137 Potassium 4.0 Chloride 101 Carbon Dioxide 29 Anion Gap 7.0 BUN 21 H Creatinine 1.40 Est Cr Clr Drug Dosing 75.0 Est GFR ( Amer) 66.9 Est GFR (Non-Af Amer) 57.8 BUN/Creatinine Ratio 14.8 Glucose 164 H POC Glucose 133 H Calcium 9.1 Total Bilirubin 0.4 AST 18 ALT 34 Alkaline Phosphatase 56 Troponin I < 0.015 Total Protein 7.1 Albumin 3.6 Globulin 3.5 Albumin/Globulin Ratio 1.0 Triglycerides Cholesterol LDL Cholesterol, Calc VLDL Cholesterol, Calc HDL Cholesterol Cholesterol/HDL Ratio Lipase 120 Diagnostic Findings Chest x-ray was obtained at the time of admission which suggested developing interstitial process versus artifact Echocardiogram was performed which revealed preserved LV systolic function. No valvular heart disease. Normal echocardiogram. Unchanged from 2018 ECG Additional Comments: EKG obtained at the time of admission revealed normal sinus rhythm with nonspecific ST and T-wave changes. This appeared unchanged from an EKG obtained on 12/07/2018 PG Care Time/CCT Total # of Minutes Spent Total Time Spent with Patient: Total time spent is greater than 50% in coordination of care (as documented) at patient's floor/unit and/or counseling patient: Coding Level of Care Code 06478 OBS Care - Level 3 Diagnoses Atypical chest pain R07.89 CAD (coronary atherosclerotic disease) I25.10
--- NOTE | 2019-09-24 10:49 | Electrocardiogram Report ---
Test Reason : Blood Pressure : / mmHG Vent. Rate : 067 BPM Atrial Rate : 067 BPM P-R Int : 142 ms QRS Dur : 082 ms QT Int : 394 ms P-R-T Axes : -04 070 090 degrees QTc Int : 416 ms Normal sinus rhythm Nonspecific T wave abnormality Abnormal ECG When compared with ECG of 07-DEC-2018 15:45, No significant change was found Confirmed by Aakash Casper ([id number]) on 09/24/2019 10:49:19 AM Referred By: REFERRED SELF Confirmed By:Chacorta Casper
--- NOTE | 2019-09-24 12:08 | Discharge Summary ---
Date of Service September 24, 2019 Admission HPI Per Admitting Provider Manjit Myrick is a 53 year old man with a past medical history significant for HTN, DMII, HLD, CKD, NAFLD, Prosthetic right eye, Depression, pulmonary nodules, inguinal hernia, MANDEEP, memory difficulties and known CAD who presents with a one day history of chest pain. Patient first noted chest pain in middle of his chest at work today. Says it was similar to gas pain or dehydration cramping pain that he gets from time to time but would not go away. He could not link this pain with exertion, rest, any position or breathing but it just seemed to be more or less present from [id number] today. He could not describe the pain but said that it was more sharp than pressure and moved directly through to his back. This pain went away and then came back early this morning before bedtime which prompted him to present to the emergency department. He doesn't remember exactly but tells me he thinks it had resolved by the time he made it to the ED. He was given nitroglycerin and ASA and ECG was obtained showing no acute ischemic changes. He had a normal appearing chest x ray and labwork was unremarkable including a normal troponin. He has trouble remembering his history but knows that he has been told her has heart disease in the past. He tells me he has never had a heart attack but had a stress test and a regular echocardiogram that were negative. Reviewing [facility] records patient has been followed by Dr. Valladares who reports patient did have cath done in 2014 which showed no significant LAD disease, ramus disease, or disease in the nondominant circumlfex and mild luminal irregularities in the right coronary artery with a discrete 90% stenosis in the proximal portion of the second posterolateral branch. Echo from two years ago showing preserved cardiac function with EF of about 65. He has a history of COPD has not been on O2, he smoked a pack and a half a day for 30 years but has recently stopped. 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 He works at a [employer]. Mom may have had a stroke or heart attack unsure Principal Diagnosis Pt has had no recurrence of chest pain since [facility] [employer]. He has been NPO, but no GI issues during admission and feels hungry. Pt denies fever, SOB, abd pain, n/v/c/d, LE pain or swelling. Discharge Exam Constitutional WD/WN, vitals as above Eyes normal visual farooq by confrontation and + anicteric sclerae Neck normal visual inspection and trachea midline Respiratory normal respiratory effort, lungs clear to auscultation Cardiovascular Rate/Rhythm: regular rate and regular rhythm Gastrointestinal (Abdomen) Inspection/Auscultation: abdomen not distended Percussion/Palpation: abdomen soft; abdomen nontender Musculoskeletal Head/Neck/Chest: normocephalic and head atraumatic Skin no rashes, warm and dry Neurologic awake; not confused Speech / Cognition: normal speech Psychiatric A+Ox3, euthymic affect Discharge Data Allergies Allergy/AdvReac Type Severity Reaction Status Date / Time Msvwxlv-Oqb-Fom Reductase Allergy Unknown Verified 09/24/19 03:15 Inhibitor Consultations 09/24/19 05:42 Consult Cardiology Routine Hospital Course (1) Substernal chest pain: Atypical Presentation, negative troponin after multiple hours of symptoms, however patient with known history of CAD and multitude of risk factors ECG negative for acute ischemic change, pain is not reproducible on physical exam, no return since [employer] ECHO with no changes from 07/2017, EF 65-70% and neg for structural issues Seen by cardiology. Unable to tolerate stress testing due to knee issues Reports that pt has routine f/u with Dr. Valladares next week, will leave decision for stress testing with pt's primary giant tire repairer given current neg workup not on statin 2/2 adverse reaction, LDL 130, HDL 32 Continue aspirin 81mg as was taking prior Cath 2014 with 90% RCA occlusion (2) Chronic obstructive pulmonary disease: No exacerbation (3) Sleep apnea: CPAP as prior (4) Dyslipidemia: not on statin 2/2 adverse reaction, LDL 130, HDL 32 (5) DM type 2 (diabetes mellitus, type 2): Resume home meds A1c (6) History of multiple pulmonary nodules: (7) CAD (coronary atherosclerotic disease): Cath 2014 with 90% RCA occlusion continue aspirin (8) HTN (hypertension): continue home meds Total Time Total Time Spent Total Time Spent (In Minutes): >30 Total Time Includes: Examination of the Patient, Discharge Planning, Medication Reconciliation, Communication With Other Providers and Other Discharge Plan Discharge Items Patient Disposition: Home - Self-Care Reason For Visit: CHEST PAIN Discharge Diagnosis: Chest pain Activity: Resume your previous activity Non-emergency contact: Bagman/Woman Call non-emergency contact if: you have any medication questions and your sympto ms worsen Follow-up/Referrals: Kg Valladares DO [Physician] - (next week, as scheduled prior to admission) Margo Martinez PA-C [Primary Care Provider] - (PLEASE CONTACT YOUR PRIMARY CARE PROVIDER TO SCHEDULE A DISCHARGE FOLLOW-UP APPOINTMENT) Diet: Carb Consistent or DM2 and Heart Healthy Addtl Attending Provider Instructions: Return to the ED if you have recurrence of chest pain Pending Studies at Discharge: No Stand-Alone Forms: [facility] Turbocoating, Smoking Cessation Medications and DC Order Prescriptions: Continued cyclobenzaprine 10 mg tablet 10 mg PO TID PRN (Reason: muscle spasm) Qty: 15 RF: 0 metformin 1,000 mg Tablet 1,000 mg PO QAM RF: 0 lisinopril 10 mg Tablet 10 mg PO QAM RF: 0 metoprolol succinate 25 mg Tablet Extended Release 24 Hr 25 mg PO QAM RF: 0 glyburide 2.5 mg tablet 2.5 mg PO QAM RF: 0 aspirin 81 mg tablet,delayed release (DR/EC) 81 mg PO QAM RF: 0 ibuprofen 800 mg tablet 800 mg PO TID PRN (Reason: Pain) RF: 0 citalopram 20 mg tablet 20 mg PO DAILY RF: 0 pramipexole 0.25 mg tablet 0.5 - 0.75 mg PO HS RF: 0 Discharge Orders: Discharge Order (Routine); Ordered 09/24/19 Ordered By: Margo Rousseau Admission Data Admit Date/Time: 09/24/19 05:02 Attending Provider: Margo Rousseau Admit Provider: Jack Martinez Primary Care Provider: Margo Martinez Other Providers: Lico Casper Other Interventions: Discharge Summary Assessment (RN) Last Done: 09/24/19 12:17 DC Date/Time DO NOT enter until pt leaves facility: 09/24/19 13:15 Coding Level of Care Code D/C Day Management >30 mins Diagnoses Substernal chest pain R07.2 Chronic obstructive pulmonary disease J44.9 Sleep apnea G47.30 Dyslipidemia E78.5 DM type 2 (diabetes mellitus, type 2) E11.9 History of multiple pulmonary nodules Z87.898 CAD (coronary atherosclerotic disease) I25.10 HTN (hypertension) I10
[2019-09-24] MEDS ORDERED: PRAMIPEXOLE DIHYDROCHLO 0.5 MG TAB PO SCH (21:00)
--- NOTE | 2019-09-25 05:45 | Billing Data ---
Date of Service September 25, 2019 Coding Level of Care Code 74491 OBS Care - Level 3
== END 2019-09-24 13:15 | disposition home or self-care (01) ==
LOC: 2N 01:46 → ED 01:46 → SUATTDRO 05:02 → 2N 05:22

== ENCOUNTER 2022-08-04 21:31 | Observation (INO) ==
[2022-08-04 22:05] LABS: Basophils # (auto) 0.03 K/uL (0-0.2); Basophils % (auto) 0.5 %; Eosinophils # (auto) 0.14 K/uL (0-0.50); Eosinophils % (auto) 2.2 %; Hematocrit (blood only) 46.9 % (42.0-52.0); Hemoglobin 16.1 g/dl (14.0-18.0); Immature Granulocytes # (auto) 0.02 K/uL (0.01-0.20); Immature Granulocytes % (auto) 0.3 %; Lymphocytes # (auto) 2.77 K/uL (1.2-3.4); Lymphocytes % (auto) 42.5 %; Mean Corpuscular Hemoglobin 31.5 pg (25.0-34.0); Mean Corpuscular Hgb Conc 34.3 g/dL (32.0-36.0); Mean Corpuscular Volume 91.8 fL (80.0-100.0); Mean Platelet Volume 8.6 fL (9.4-12.4); Monocytes # (auto) 0.52 K/uL (0.11-0.59); Neutrophils # (auto) 3.03 K/uL (1.40-6.50); Neutrophils % (auto) 46.5 %; Platelet Count 335 K/uL (130-400); RDW Coefficient of Variation 13.6 % (11.5-14.5); RDW Standard Deviation 46.5 fL (36.4-46.3); Red Blood Count 5.11 M/uL (4.70-6.10); White Blood Count 6.51 K/ul (4.8-10.8)
[2022-08-04 22:20] LABS: INR 0.9 (0.9-1.1); Partial Thromboplastin Ratio 0.8; Partial Thromboplastin Time 22.9 Seconds (21.0-31.0)
[2022-08-04 22:35] LABS: Influenza A virus by PCR Negative (Neg); Influenza B virus by PCR Negative (Neg); RSV by PCR Negative (Neg); SARS CoV2 RNA(COVID-19) Ceph NEGATIVE (Negative)
[2022-08-04 22:54] LABS: Albumin Globulin Ratio 1.6 (0.9-2); BUN Creatinine Ratio 18.9 (10-20); Bilirubin,Total 0.3 mg/dl (0.2-1.0); Calcium 9.4 mg/dl (8.6-10.3); Creatinine Clr Calc Pharmacy 82.5 ml/min; Est GFR (African American) 77.4 ml/min; Est GFR (Non-African American) 66.8 ml/min; Globulin 2.5 gm/dl (2.5-4.0); Potassium 4.8 mmol/L (3.5-5.1); Total Protein 6.5 gm/dl (6.0-8.3)
[2022-08-04 23:01] LABS: Troponin I High Sensitivity 5.5 pg/ml (0-20)
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
[2022-08-05] MEDS ORDERED: PRAMIPEXOLE DIHYDROCHLO 0.5 MG TAB PO STA (02:54)
[2022-08-05] MEDS ORDERED: rOPINIRole HCL 0.25 MG TABLET PO STA (02:54)
[2022-08-05] MEDS ORDERED: GLUCAGON FOR INJ 1 MG VIAL SQ PRN (03:04)
[2022-08-05] MEDS ORDERED: DEXTROSE 50% 50 ML SYRINGE IV PRN (03:04)
[2022-08-05] MEDS ORDERED: GLUCOSE 40% GEL 15 GM TUBE PO PRN (03:04)
[2022-08-05] MEDS ORDERED: CARBOHYDRATES FOR HYPOGLYCEMIA PO PRN (03:04)
[2022-08-05] MEDS ORDERED: GLUCOSE 10 TAB/TUBE PO PRN (03:04)
[2022-08-05] MEDS ORDERED: ACETAMINOPHEN 325 MG TAB PO PRN (03:04)
[2022-08-05] MEDS ORDERED: oxyCODONE HCL IR 5 MG TAB (IMMEDIATE RELEASE) PO PRN (04:48)
[2022-08-05] MEDS: ALBUTEROL HFA 8 GM INHALER INH SCH ×3 (05:30→11:03)
[2022-08-05] MEDS: IPRATROPIUM BROMIDE HFA INHALER INH SCH ×2 (07:30→11:03)
--- NOTE | 2022-08-05 07:59 | XRay Report ---
XR chest 1V not portable HISTORY: Midsternal chest pain. COMPARISON: Chest 07/05/2021. FINDINGS: The lungs are clear. Cardiac silhouette is normal in size. No pleural effusions. No pneumot horax. IMPRESSION: No acute process. ACT 112: Negative or not required by law. Electronically signed by: Tony Olvera M.D. 08/05/2022 7:57 AM
[2022-08-05] MEDS: INSULIN ASPART PER UNIT CHARGE SC SCH ×2 (08:53→12:33)
[2022-08-05] MEDS ORDERED: CITALOPRAM 40 MG TAB PO SCH (09:00)
[2022-08-05] MEDS ORDERED: ONDANSETRON INJ 2 MG/ML 2 ML VIAL IV PRN (09:00)
[2022-08-05] MEDS ORDERED: EZETIMIBE 10 MG TABLET PO SCH (09:00)
[2022-08-05] MEDS ORDERED: lisinopril 20 MG TAB PO SCH (09:00)
[2022-08-05] MEDS ORDERED: PANTOprazole 40 MG TAB PO SCH (09:00)
[2022-08-05] MEDS ORDERED: METOPROLOL SUCC 25MG EXT REL TAB PO SCH (09:00)
[2022-08-05] MEDS ORDERED: ASPIRIN 81 MG ECTAB PO SCH (09:00)
[2022-08-05] MEDS ORDERED: ENOXAPARIN INJ 40 MG/0.4 ML SYR SQ SCH (09:00)
[2022-08-05] MEDS ORDERED: PREGABALIN 150 MG CAP PO SCH (09:00)
[2022-08-05] MEDS: DOBUTamine HCL 12.5 MG/ML 20 ML VIAL IV ONE ×2 (12:29→14:04)
[2022-08-05] MEDS: METOPROLOL TARTRATE 1 MG/ML VIAL IV ONE ×2 (12:30→14:04)
[2022-08-05] MEDS: NITROGLYCERIN SL 0.4 MG/TAB TAB ONE ×2 (12:30→14:05)
[2022-08-05] MEDS: ATROPINE SULFATE 0.1 MG/ML 10ML SYR IV ONE ×2 (12:30→14:01)
--- NOTE | 2022-08-05 13:02 | Electrocardiogram Report ---
Test Reason : Blood Pressure : / mmHG Vent. Rate : 074 BPM Atrial Rate : 074 BPM P-R Int : 134 ms QRS Dur : 084 ms QT Int : 382 ms P-R-T Axes : 007 069 075 degrees QTc Int : 424 ms Normal sinus rhythm Normal ECG When compared with ECG of 02-JUL-2021 10:22, Premature ventricular complexes are no longer Present Confirmed by Dhaval Ambriz ([id number]) on 08/05/2022 1:01:57 PM Referred By: REFERRED SELF Confirmed By:Dhaval Ambriz
--- NOTE | 2022-08-05 14:49 | XCELERA ---
[id number] \\[email or web address]\[email or web address]_[email or web address]\[id number]}___[id number]
--- NOTE | 2022-08-05 17:56 | Discharge Summary ---
Date of Service August 05, 2022 Admission HPI Per Admitting Provider 56 yo male with PMHx of CAD, DM2, mild MANDEEP not on CPAP, COPD, restless leg syndrome, GERD, bipolar disorder, tobacco user, and HLD presents with substernal chest pressure/pain. Started yesterday at rest without trigger and gradually went away in 1-2 hours. The same pain started again today which prompted him to come to the ER. Non exertional. Has had associated headache, abd discomfort, nonproductive cough, fatigue/malaise, sob on deep inhalation, chronic bilateral UE numbness. Denies fevers, diaphoresis, N/V/D. Denies exacerbations of GERD or anxiety. H/o COPD on rescue albuterol which he uses 1-2x/wk. Used to be on a Breo-like inhaler but he stopped because he didn't think it was doing anything. Daily smoker. Has taken his daily aspirin. Of note, he has had a cardiac cath ~5-10 years ago with CAD and high grade stenosis on medical management with PETE and Zetia. Last echo in 2020 with preserved EF. Follows with Dr. Valladares cardiology. Principal Diagnosis Chest painnegative cardiac work-up. Likely COPD related Discharge Exam In general he is awake and alert pleasant no distress. HEENT normocephalic atraumatic mucous membranes moist. Lungs somewhat diminished but clear no rales rhonchi or wheezes good effort no accessory muscle use no conversational dyspnea. Neuro without focal deficits. Skin without rashes pallor or icterus. Discharge Data Allergies Allergy/AdvReac Type Severity Reaction Status Date / Time Ifevbwh-TBG-RhH Reductase AdvReac Mild PER PT--MD Verified 08/05/22 02:14 Inhibitor TOLD NOT [Pmlwvnd-Ohl-Qic Reductase TO TAKE Inhibitor] Consultations 08/05/22 01:25 ED Decision to Admit Stat Hospital Course (1) Chronic obstructive pulmonary disease: Presented with chest painconcern on CAD, although at the time of admission COPD related discomfort was also of concern. NH ruled out with reassuring EKG and extremely reassuring cardiac enzymes serially. Unstable angina/coronary disease risk stratified to be low in acuity with very reassuring dobutamine stress echo at 96% of max predicted heart rate. Patient stable for home. Chest discomfort deemed most likely related to COPD, although not really in much of an exacerbation as much as just probably a poor baseline state of control. It sounds like he has been on maintenance inhalers before but its not clear how long he has taken them. PFTs in the EMR noted. Patient will follow-up with PCP, and anticipate restarting a maintenance inhaler regimen with anticholinergic, or possibly even just triple therapy, and education to hopefully increase the chance of adherence. Stable for home. Total Time Total Time Spent Total Time Spent (In Minutes): Less than 30 Discharge Plan Discharge Items Patient Disposition: Home - Self-Care Reason For Visit: CHEST PAIN Discharge Diagnosis: Chest painfortunately no signs of cardiac problems. Likely related to COPD. Activity: Resume your previous activity Non-emergency contact: Primary Care Provider Call non-emergency contact if: you have any medication questions and your symptoms worsen Follow-up/Referrals: Margo Martinez PA-C [Primary Care Provider] - 08/12/22 8:50 am Diet: Carb Consistent or DM2 Addtl Attending Provider Instructions: Chest pain: -Once someone comes to the hospital with chest pain like you are describing, obviously the "diagnosis of exclusion" would be making sure that its not a heart attack/angina/etc. I typically look at this is a "two-step process"first making sure that you did not have a heart attack (and this was an abundant nowith your EKG is not looking like your heart was lacking blood flow, and your troponin lab tests (which are ridiculously sensitive for any sign of strain or damage to your heart muscle) being completely normal over multiple checks several hours apart, it was very clear you were not having a heart attack. The second part of the process is looking at the probability of the symptoms being "unstable angina" (think: Heart attack waiting to happen/trying to happen)short of doing something invasive like a catheterization, the stress test like you had today is about 90% as accurate. With that stress test being reassuring, it overall looks exceedingly unlikely that any of the pain was heart related. -Your symptoms certainly also fit with symptoms that we see with uncontrolled COPD. Given that your breathing is feeling better, right now we do not necessarily need to do more, but as you follow-up with your PCP, getting on a regular maintenance inhaler regimen (especially starting with something like an anticholinergic like Spiriva, Incruse, etc.) can be quite helpful. 1 common mistakes that people make with maintenance inhalers is that they will often stop them if they do not feel an immediate benefit. While your albuterol (rescue inhaler) is made to help you feel better as soon as you take it, maintenance inhalers are much more analogous to a blood pressure medicineyou do not really feel the blood pressure medicine when you take it, but taking it regularly controls the blood pressure and protects you from bad complications of uncontrolled high blood pressure; similarly, maintenance inhalers do not necessarily change how you feel that day, but they do help in the long run with the management of chronic lung disease, helping you breathes better on a regular day/reducing flareups/reducing the severity of flareups, etc. Pending Studies at Discharge: No (formal report on stress echo is still pending, cardiology said normal) Stand-Alone Forms: My [facility] [employer], Smoking Cessation Medications and DC Order Prescriptions: Continued cyclobenzaprine 10 mg tablet 10 mg PO TID PRN (Reason: muscle spasm) Qty: 15 0RF metformin 1,000 mg Tablet 1,000 mg PO BID lisinopril 10 mg Tablet 20 mg PO QAM aspirin 81 mg tablet,delayed release (DR/EC) 81 mg PO QAM pramipexole [Mirapex] 0.25 mg tablet 0.5 - 0.75 mg PO HS ropinirole 0.5 mg Tablet 0.5 mg PO HS prednisone 20 mg Tablet 20 mg PO BID PRN (Reason: Pain) Rx Instructions: per s/o : this med to be taken with prn oxycodone citalopram [Celexa] 20 mg Tablet 20 mg PO HS ezetimibe [Zetia] 10 mg Tablet 10 mg PO QAM Trulicity 0.75 mg/0.5 mL Pen Injector 0.75 mg SUBCUT WK citalopram 40 mg tablet 40 mg PO QAM albuterol sulfate 90 mcg/actuation HFA aerosol inhaler 1 puff INHALATION Q6H PRN (Reason: Wheezing) Trulicity 0.75 mg/0.5 mL pen injector 0.25 mg SUBCUT WK Rx Instructions: take this med every Thursday ibuprofen 800 mg tablet 800 mg PO TID PRN (Reason: Pain) pregabalin 150 mg capsule 150 mg PO BID metoprolol succinate 25 mg Tablet Extended Release 24 Hr 25 mg PO QAM oxycodone 10 mg tablet 10 mg PO Q6H PRN (Reason: Pain) Rx Instructions: take with prednisone Atrovent HFA 17 mcg/actuation HFA aerosol inhaler 1 puff INHALATION QID Discharge Orders: Discharge Order (Routine); Ordered 08/05/22 Ordered By: Benjamín Jacobson/Other Patient Handouts: Managing Type 2 Diabetes, How to Check Your Blood Sugar, Diabetes: Meal Planning Admission Data Admit Date/Time: 08/05/22 02:15 Attending Provider: Benjamín Iyer Admit Provider: James Burkett Primary Care Provider: Margo Martinez Other Providers: Osman Byrd Other Interventions: Discharge Summary Assessment (RN) Last Done: 08/05/22 13:28 Coding Level of Care Code 57315 IN/OBS DISCH 30 MIN/LESS Diagnoses Chronic obstructive pulmonary disease J44.9
[2022-08-05] MEDS ORDERED: rOPINIRole HCL 0.25 MG TABLET PO SCH (21:00)
[2022-08-05] MEDS ORDERED: PRAMIPEXOLE DIHYDROCHLO 0.5 MG TAB PO SCH (21:00)
[2022-08-05] MEDS ORDERED: CITALOPRAM 20 MG TAB PO SCH (21:00)
--- NOTE | 2022-08-05 21:53 | Billing Data ---
Date of Service August 05, 2022 Coding Level of Care Code 11753 INT INP/OBS CARE
== END 2022-08-05 14:24 | disposition home or self-care (01) ==
LOC: ED 21:31 → EDINP 21:31 → SUATTDRO 08-05 02:15 → 2N 08-05 03:59